=== PATIENT | female | born 1970 | race Caucasian/White ===

== ENCOUNTER 2017-12-14 03:29 | Emergency (ER) | payer OTHER ==
[~2017-12-14] VITALS: Ht 157.5 cm; Wt 60.8 kg
[~2017-12-14 03:29] MED LIST: ALBU8.5H6 IH; AMIT75TA PO; CHOL-5 PO; FOLI1TAB16 PO; LORA-434 PO; NAPH15DR20 OP; NICO1PAT25 TP; RIZA10TA10 PO; SIMV20TA3 PO; VENL75TA PO; [UNRECOGNIZED DRUG - CODE] PO
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
[2017-12-14 04:26] LABS: BASO # 0.1 x10^3/uL (0.0-0.2); BASO % 1 % (0-3); EOS # 0.3 x10^3/uL (0.0-0.7); EOS % 4 % (0-3); HEMATOCRIT 44.2 % (36.0-47.0); HEMOGLOBIN 14.9 g/dL (12.0-15.5); LYMPH # 2.1 x10^3/uL (1.0-4.8); LYMPH % 27 % (24-48); MEAN CORPUSCULAR HEMOGLOBIN 29 pg (25-35); MEAN CORPUSCULAR HGB CONC 34 g/dL (31-37); MEAN CORPUSCULAR VOLUME 85 fL (79-100); MONO # 0.9 x10^3/uL (0.0-1.1); MONO % 12 % (0-9); NEUT # 4.4 x10^3uL (1.8-7.7); NEUT % 57 % (31-73); PLATELET COUNT 285 x10^3/uL (140-400); RED BLOOD COUNT 5.19 x10^6/uL (3.50-5.40); RED CELL DISTRIBUTION WIDTH 14.9 % (11.5-14.5); WHITE BLOOD COUNT 7.7 x10^3/uL (4.0-11.0)
[2017-12-14] MEDS ORDERED: ONDANSETRON PF 4 MG/2 ML VIAL. IV ONE (04:30)
[2017-12-14] MEDS ORDERED: MVI, ADULT NO.4 WITH VIT K 10 ML, FOLIC ACID SYRINGE for ER 1 MG, THIAMINE 100 MG in IV... IV ONE ×4 (04:30)
[2017-12-14 04:31] LABS: BARBITURATES NEG (NEG); BENZODIAZEPINES NEG (NEG); CANNABINOIDS NEG (NEG); COCAINE NEG (NEG); METHADONE NEG (NEG); OPIATES NEG (NEG); PHENCYCLIDINE NEG (NEG)
[2017-12-14 04:38] LABS: ALBUMIN 3.9 g/dL (3.4-5.0); ALK PHOS 95 U/L (46-116); ALT (SGPT) 71 U/L (14-59); ANION GAP 16 (6-14); AST (SGOT) 62 U/L (15-37); BLOOD UREA NITROGEN 22 mg/dL (7-20); CALCIUM 8.8 mg/dL (8.5-10.1); CARBON DIOXIDE 23 mmol/L (21-32); CHLORIDE 108 mmol/L (98-107); CREATININE 0.9 mg/dL (0.6-1.0); GFR 67.4; GLUCOSE 90 mg/dL (70-99); POTASSIUM 3.7 mmol/L (3.5-5.1); SODIUM 147 mmol/L (136-145); TOTAL BILIRUBIN 0.2 mg/dL (0.2-1.0); TOTAL PROTEIN 7.9 g/dL (6.4-8.2)
[2017-12-14] MEDS ORDERED: THIAMINE 200 MG/2 ML VIAL. IV ONE (04:38)
[2017-12-14] MEDS ORDERED: FOLIC ACID 5 MG/ML SYRINGE for ER IV ONE (04:39)
[2017-12-14] MEDS ORDERED: MVI, ADULT NO.4 WITH VIT K 10 ML VIAL IV ONE (04:39)
[2017-12-14 04:47] LABS: AMPHETAMINE/METHAMPHETAMINE NEG (NEG); DIRECT BILIRUBIN < 0.1 mg/dL (0.0-0.2)
[2017-12-14 05:08] LABS: BILIRUBIN,URINE NEG (NEG); CLARITY,URINE CLEAR; COLOR,URINE STRAW; GLUCOSE,URINE NEG (NEG); NITRITE,URINE NEG (NEG); RBC,URINE 0 /HPF (0-2); UROBILINOGEN,URINE 0.2 mg/dL (0.2 mg/dL); WBC,URINE 0 /HPF (0-4)
[2017-12-14 05:09] LABS: BACTERIA,URINE FEW /HPF (0-FEW); SQUAMOUS EPITHELIAL CELL,UR FEW /LPF
[2017-12-14 07:06] VITALS: BP 110/58
== END 2017-12-14 07:06 | disposition home or self-care (01) ==
LOC: ER 03:29
DX: F10.129 Alcohol abuse with intoxication, unspecified (principal); E87.0 Hyperosmolality and hypernatremia; R74.0 Nonspecific elevation of levels of transaminase and lactic acid dehydrogenase [LDH]; Z88.0 Allergy status to penicillin
CPT/HCPCS: 36415; 80048; 80076; 80307; 81001; 83735; 85025; 96365; 96375; 99284; G0480; J2405; J7120; G0479

== ENCOUNTER 2017-12-27 22:36 | Emergency (ER) | payer MEDICARE, OTHER ==
[~2017-12-27] VITALS: Ht 157.5 cm; Wt 60.8 kg
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
[2017-12-27] MEDS ORDERED: FOLIC ACID 5 MG/ML SYRINGE for ER IV ONE (23:04)
[2017-12-27] MEDS ORDERED: THIAMINE 200 MG/2 ML VIAL. IV ONE (23:04)
[2017-12-27] MEDS ORDERED: MVI, ADULT NO.4 WITH VIT K 10 ML VIAL IV ONE (23:04)
[2017-12-27] MEDS ORDERED: MVI, ADULT NO.4 WITH VIT K 10 ML, FOLIC ACID SYRINGE for ER 1 MG, THIAMINE 100 MG in IV... IV ONE ×4 (23:15)
[2017-12-27] MEDS ORDERED: LORazepam 2 MG/ML VIAL ONE (23:21)
[2017-12-27] MEDS ORDERED: LORazepam 2 MG/ML VIAL IV ONE (23:30)
[2017-12-27 23:45] LABS: BASO % 1 % (0-3); EOS # 0.1 x10^3/uL (0.0-0.7); EOS % 2 % (0-3); HEMATOCRIT 43.1 % (36.0-47.0); HEMOGLOBIN 14.6 g/dL (12.0-15.5); LYMPH # 1.4 x10^3/uL (1.0-4.8); LYMPH % 21 % (24-48); MEAN CORPUSCULAR HEMOGLOBIN 29 pg (25-35); MEAN CORPUSCULAR HGB CONC 34 g/dL (31-37); MEAN CORPUSCULAR VOLUME 84 fL (79-100); MONO # 1.1 x10^3/uL (0.0-1.1); MONO % 16 % (0-9); NEUT # 4.2 x10^3uL (1.8-7.7); NEUT % 61 % (31-73); PLATELET COUNT 210 x10^3/uL (140-400); RED BLOOD COUNT 5.13 x10^6/uL (3.50-5.40); RED CELL DISTRIBUTION WIDTH 14.7 % (11.5-14.5); WHITE BLOOD COUNT 6.9 x10^3/uL (4.0-11.0)
[2017-12-27 23:52] LABS: BACTERIA,URINE FEW /HPF (0-FEW); BILIRUBIN,URINE NEG (NEG); CLARITY,URINE CLEAR; COLOR,URINE STRAW; GLUCOSE,URINE NEG (NEG); NITRITE,URINE NEG (NEG); RBC,URINE 0 /HPF (0-2); SQUAMOUS EPITHELIAL CELL,UR FEW /LPF; UROBILINOGEN,URINE 0.2 mg/dL (0.2 mg/dL); WBC,URINE 0 /HPF (0-4)
[2017-12-27 23:56] LABS: ALBUMIN 3.8 g/dL (3.4-5.0); CALCIUM 8.4 mg/dL (8.5-10.1); CREATININE 0.8 mg/dL (0.6-1.0); DIRECT BILIRUBIN 0.1 mg/dL (0.0-0.2); GFR 76.9; POTASSIUM 4.3 mmol/L (3.5-5.1); TOTAL BILIRUBIN 0.1 mg/dL (0.2-1.0); TOTAL PROTEIN 7.8 g/dL (6.4-8.2)
[2017-12-27 23:57] LABS: BARBITURATES NEG (NEG); BENZODIAZEPINES NEG (NEG); CANNABINOIDS NEG (NEG); COCAINE NEG (NEG); METHADONE NEG (NEG); OPIATES NEG (NEG); PHENCYCLIDINE NEG (NEG)
[2017-12-27 23:59] LABS: AMPHETAMINE/METHAMPHETAMINE NEG (NEG)
[2017-12-28 00:05] VITALS: BP 142/45
== END 2017-12-28 00:10 | disposition home or self-care (01) ==
LOC: ER 22:36
DX: F10.129 Alcohol abuse with intoxication, unspecified (principal); F41.9 Anxiety disorder, unspecified; F32.9 Major depressive disorder, single episode, unspecified; Z72.0 Tobacco use; Z88.0 Allergy status to penicillin
CPT/HCPCS: 36415; 80048; 80076; 80307; 81001; 83735; 85025; 96365; 96375; 99284; G0480; J2060; J7120; G0479

== ENCOUNTER 2018-01-19 23:43 | Emergency (ER) | payer MEDICARE, OTHER ==
[~2018-01-19] VITALS: Ht 157.5 cm; Wt 60.8 kg
--- NOTE | 2018-01-19 23:52 | ED.ADGEN ---
Past History Past Medical History: Alcoholism, Anxiety, Depression, Other Past Surgical History: Other Alcohol Use: Heavy Drug Use: None Adult General Chief Complaint Chief Complaint ".. I was over at the [facility] and they told me to leave.. I was wanting to sober up...".. " and they kicked me out the ED at the [facility].. ".." I earned two silver stars..in the service.. and they just kicked me out of the ED..." HPI HPI Patient is a 47 year old female/male in transition who presents with requests for in pt. detox. Pt. was at [facility] [address] one hour ago and states they told him to leave. Pt. is know to the ED staff for prior ED visits . Pt currently sex change process. Pt. admits to drinking heavily tonight. Pt. earlier in the the week had fallen and hit his heard very hard. Pt. concerned he had a concussion.. Pt. hx alcohol abuse. Paramedics advised they had just dropped pt. off at [facility] less than 1 hr. ago. Review of Systems Review of Systems Constitutional: Denies fever or chills [] Eyes: Denies change in visual acuity, redness, or eye pain [] HENT: Denies nasal congestion or sore throat [] Respiratory: Denies cough or shortness of breath [] Cardiovascular: No additional information not addressed in HPI [] GI: Denies abdominal pain, nausea, vomiting, bloody stools or diarrhea [] : Denies dysuria or hematuria [] Musculoskeletal: Denies back pain or joint pain [] Integument: Denies rash or skin lesions [] Neurologic: Complaints of headache, Denies, focal weakness or sensory changes [ ] Endocrine: Denies polyuria or polydipsia [] All other systems were reviewed and found to be within normal limits, except as documented in this note. Family History Family History Non-contributory Current Medications Current Medications Current Medications Medications (Trade) Dose Ordered Sig/Santosh Start Time Stop Time Status Last Admin Dose Admin Multivitamins/ Minerals 10 ml/ Folic Acid 1 mg/ Thiamine HCl 100 mg/Lactated Ringer's 1,011.1 ml @ 1,000 mls/ hr 1X ONCE 01/20/18 00:30 01/20/18 01:30 DC See nursing for home meds. Allergies Allergies Allergies Coded Allergies Type Severity Reaction Last Updated Verified Penicillins Allergy Intermediate 08/17/14 Yes ketamine Allergy Unknown 12/28/17 Yes Physical Exam Physical Exam Constitutional: no acute distress, mildly intoxicated in appearance. [] HENT: Normocephalic, atraumatic, bilateral external ears normal, oropharynx moist, no oral exudates, nose normal. [] Eyes: PERRLA, EOMI, conjunctiva normal, no discharge. [] Neck: Normal range of motion, no tenderness, supple, no stridor. [] Cardiovascular: Tachycardia Heart rate regular rhythm, no murmur [] Lungs & Thorax: Bilateral breath sounds clear to auscultation []Has breast wrapped flat Abdomen: Bowel sounds normal, soft, no tenderness, no masses, no pulsatile masses. [] Skin: Warm, dry, no erythema, no rash. [] Back: No tenderness, no CVA tenderness. [] Extremities: No tenderness, no cyanosis, no clubbing, ROM intact, no edema. Leg scars. Neurologic: Alert and oriented X 3, normal motor function, normal sensory function, no focal deficits noted. []DTR +2 patella and brachial. Wide gait. Mild dis coordination. Psychologic: Affect happy, judgement poor insight to his behavior and excessive alcohol use. mood normal. [] Current Patient Data Vital Signs Vital Signs Date Time Temp Pulse Resp B/P (MAP) Pulse Ox O2 Delivery O2 Flow Rate FiO2 01/20/18 01:20 90 20 127/78 (94) 96 Room Air 01/20/18 00:45 98.3 Lab Results Laboratory Tests Test 01/20/18 00:20 01/20/18 00:30 Urine Collection Type Unknown Urine Color Yellow Urine Clarity Clear Urine pH 5.5 Urine Specific [place] 1.010 Urine Protein Neg (NEG-TRACE) Urine Glucose (UA) Neg mg/dL (NEG) Urine Ketones (Stick) Neg mg/dL (NEG) Urine Blood Neg (NEG) Urine Nitrite Neg (NEG) Urine Bilirubin Neg (NEG) Urine Urobilinogen Dipstick 0.2 mg/dL (0.2 mg/dL) Urine Leukocyte Esterase Neg (NEG) Urine RBC 0 /HPF (0-2) Urine WBC Occ /HPF (0-4) Urine Squamous Epithelial Cells Occ /LPF Urine Bacteria 0 /HPF (0-FEW) White Blood Count 4.0 x10^3/uL (4.0-11.0) Red Blood Count 5.06 x10^6/uL (4.30-5.70) Hemoglobin 14.1 g/dL (13.0-17.5) Hematocrit 42.1 % (39.0-53.0) Mean Corpuscular Volume 83 fL (79-100) Mean Corpuscular Hemoglobin 28 pg (25-35) Mean Corpuscular Hemoglobin Concent 34 g/dL (31-37) Red Cell Distribution Width 16.7 % (11.5-14.5) H Platelet Count 324 x10^3/uL (140-400) Neutrophils (%) (Auto) 40 % (31-73) Lymphocytes (%) (Auto) 39 % (24-48) Monocytes (%) (Auto) 15 % (0-9) H Eosinophils (%) (Auto) 4 % (0-3) H Basophils (%) (Auto) 3 % (0-3) Neutrophils # (Auto) 1.6 x10^3uL (1.8-7.7) L Lymphocytes # (Auto) 1.6 x10^3/uL (1.0-4.8) Monocytes # (Auto) 0.6 x10^3/uL (0.0-1.1) Eosinophils # (Auto) 0.2 x10^3/uL (0.0-0.7) Basophils # (Auto) 0.1 x10^3/uL (0.0-0.2) Troponin I Quantitative < 0.017 ng/mL (0-0.055) Urine Opiates Screen Neg (NEG) Urine Methadone Screen Neg (NEG) Urine Barbiturates Neg (NEG) Urine Phencyclidine Screen Neg (NEG) Urine Amphetamine/Methamphetamine Neg (NEG) Urine Benzodiazepines Screen Neg (NEG) Urine Cocaine Screen Neg (NEG) Urine Cannabinoids Screen Neg (NEG) Urine Ethyl Alcohol Pos (NEG) EKG EKG My interpretation EKG shows a sinus tachycardia at103 beats. No acute morphology appreciated.[] Radiology/Procedures Radiology/Procedures My interpretation chest x-ray shows no acute cardiopulmonary changes.. I interpretation CT of head shows no shift, mass, edema, bleed, or fracture. My interpretation of CT of neck shows no obvious fracture dislocation. Does have some mild degenerative joint changes. Does have some form foraminal narrowing due spurs. See Formal report when available. [] Course & Med Decision Making Course & Med Decision Making Pertinent Labs and Imaging studies reviewed. (See chart for details) Pt. encourage to stop drinking alcohol. Encourage pt to get inpt. rehab. Pt. demanded discharge. Was released in company of friend. Pt. encouraged return. [] Final Impression Final Impression 1. Alcohol Abuse[] Dragon Disclaimer Dragon Disclaimer This electronic medical record was generated, in whole or in part, using a voice recognition dictation system. NATALI MAURICIO MD January 19, 2018 23:52
[2018-01-20] MEDS ORDERED: MVI, ADULT NO.4 WITH VIT K 10 ML, FOLIC ACID SYRINGE for ER 1 MG, THIAMINE 100 MG in IV... IV ONE ×4 (00:30)
[2018-01-20 00:59] LABS: BASO # 0.1 x10^3/uL (0.0-0.2); BASO % 3 % (0-3); EOS # 0.2 x10^3/uL (0.0-0.7); EOS % 4 % (0-3); HEMATOCRIT 42.1 % (39.0-53.0); HEMOGLOBIN 14.1 g/dL (13.0-17.5); LYMPH # 1.6 x10^3/uL (1.0-4.8); LYMPH % 39 % (24-48); MEAN CORPUSCULAR HEMOGLOBIN 28 pg (25-35); MEAN CORPUSCULAR HGB CONC 34 g/dL (31-37); MEAN CORPUSCULAR VOLUME 83 fL (79-100); MONO # 0.6 x10^3/uL (0.0-1.1); MONO % 15 % (0-9); NEUT # 1.6 x10^3uL (1.8-7.7); NEUT % 40 % (31-73); PLATELET COUNT 324 x10^3/uL (140-400); RED BLOOD COUNT 5.06 x10^6/uL (4.30-5.70); RED CELL DISTRIBUTION WIDTH 16.7 % (11.5-14.5)
[2018-01-20 01:14] LABS: BARBITURATES NEG (NEG); BENZODIAZEPINES NEG (NEG); CANNABINOIDS NEG (NEG); COCAINE NEG (NEG); METHADONE NEG (NEG); OPIATES NEG (NEG); PHENCYCLIDINE NEG (NEG)
[2018-01-20 01:15] LABS: AMPHETAMINE/METHAMPHETAMINE NEG (NEG)
[2018-01-20 01:20] VITALS: BP 127/78
--- NOTE | 2018-01-20 01:25 | RAD ---
RS Compliance Statement: One or more of the following individualized dose reduction techniques were utilized for this examination: 1. Automated exposure control 2. Adjustment of the mA and/or kV according to patient size 3. Use of iterative reconstruction technique CT HEAD AND CERVICAL SPINE WITHOUT CONTRAST History: 182249.001 Injury from fall 01/16/18, headache and neck pain, patient states he thinks he had a seizure earlier today also. Hx: Seizures Comparison: None. Procedure: Axial images are obtained of the head from the skull base through the vertex without IV contrast. Noncontrast helical CT of the cervical spine was performed. Axial, sagittal, and coronal reconstructions were obtained. Findings: The ventricles and sulci are normal for the patient's age. No mass-effect, midline shift, hemorrhage or obvious acute infarction is identified. Basilar cisterns are patent. Bone windows demonstrate no significant calvarial abnormality. The visualized paranasal sinuses are clear. Mastoid air cells are well aerated. There is no evidence of acute fracture or acute malalignment of the cervical spine. Facet joints are intact, hypertrophic. There is disc space narrowing and degenerative endplate spurring in the cervical spine. There are spondylitic discs of C3/C4, C4/C5, C5/C6. Uncinate process hypertrophy contributes to neural foraminal narrowing. Visualized soft tissues of the neck demonstrate no significant abnormalities. The visualized lung apices are clear. IMPRESSION: 1. No acute intracranial abnormality. 2. No acute fracture of the cervical spine. Electronically signed by: Brett Corey MD (01/20/2018 1:21 AM) [id number]
--- NOTE | 2018-01-20 01:44 | EKG ---
[address] [address] Test Date: 2018-01-20 Test Time: 00:33:40 Pat Name: SY CREWS Department: Room: Gender: M Inspector: QAMAR : 1970 Requested By: NATALI MAURICIO Order Number: [id number] Reading MD: Measurements Intervals [place] Rate: 103 P: 67 [place]: 128 QRS: 68 QRSD: 100 T: 16 QT: 332 QTc: 437 Interpretive Statements SINUS TACHYCARDIA NO SPECIFIC ECG ABNORMALITIES RI6.01 No previous ECG available for comparison
[2018-01-20 01:59] LABS: BACTERIA,URINE 0 /HPF (0-FEW); BILIRUBIN,URINE NEG (NEG); CLARITY,URINE CLEAR; COLOR,URINE YELLOW; GLUCOSE,URINE NEG (NEG); NITRITE,URINE NEG (NEG); RBC,URINE 0 /HPF (0-2); SQUAMOUS EPITHELIAL CELL,UR OCC /LPF; UROBILINOGEN,URINE 0.2 mg/dL (0.2 mg/dL); WBC,URINE OCC /HPF (0-4)
--- NOTE | 2018-01-20 07:59 | RAD ---
Chest, PA and Lateral: Technique: PA and lateral views of the chest were obtained. History: Dizziness, dyspnea. Comparison: None. Findings: The heart and pulmonary vasculature appear within normal limits. The lungs are clear. The pleural margins are clear. Impression: No acute chest process is seen. Electronically signed by: Jose F Brown MD (01/20/2018 7:56 AM) [facility]
== END 2018-01-20 01:20 | disposition left against medical advice (07) ==
LOC: ER 23:43 → EDSEX 23:43 → ER 01-20 01:20
DX: F10.20 Alcohol dependence, uncomplicated (principal); R51 Headache; F41.9 Anxiety disorder, unspecified; F32.9 Major depressive disorder, single episode, unspecified; Z88.0 Allergy status to penicillin; Z88.8 Allergy status to other drugs, medicaments and biological substances
CPT/HCPCS: 36415; 70450; 71046; 72125; 80307; 81001; 84484; 85025; 93005; 99285-25; G0479

== ENCOUNTER 2018-02-26 21:15 | Emergency (ER) | payer MEDICARE, OTHER ==
[~2018-02-26] VITALS: Ht 157.5 cm; Wt 57.4 kg
[~2018-02-26 21:15] MED LIST changes: +LORA-254 PO; -LORA-434 PO
--- NOTE | 2018-02-26 21:23 | ED.ADGEN ---
Past History Past Medical History: Alcoholism, Anxiety, Depression, Other Past Surgical History: Other Smoking: Cigarettes Alcohol Use: Heavy Drug Use: Marijuana Adult General Chief Complaint Chief Complaint " .. I was just drinking.. and some one called the police on me.. I was drinking my normal 2 + pints a day... fuck.. I can't drink without someone calling the police... yes have been puking.. some blood...."".. I am not even close to my normal drunk..I bet my alcohol level is lower than any of the other times I ve been forced to come in here..." HPI HPI Patient is a 47 year old female/ male in transition who presents with hx of PD refer for medical eval. Pt. apparently turned into Police depart. for well being check. [place] [facility] then called Paramedics for transport to OR. Pt. refused to go to OR where he gets his primary care. Pt. know to ED staff, for frequent eval. for ETOH abuse. Pt. does have hx of Alcohol abuse, depression and anxiety disorder. No recent hx of travel, ill contracts or trauma. Pt. admit to alcohol use today. Pt. states he is not as drunk as usual. Review of Systems Review of Systems Constitutional: Denies fever or chills [] Eyes: Denies change in visual acuity, redness, or eye pain [] HENT: Denies nasal congestion or sore throat [] Respiratory: Denies cough or shortness of breath [] Cardiovascular: No additional information not addressed in HPI [] GI: Hx of abdominal pain,. Denies, bloody stools or diarrhea [Hx. of ] nausea , vomiting : Denies dysuria or hematuria [] Musculoskeletal: Denies back pain or joint pain [] Integument: Denies rash or skin lesions [] Neurologic: Denies headache, focal weakness or sensory changes [] Endocrine: Denies polyuria or polydipsia [] All other systems were reviewed and found to be within normal limits, except as documented in this note. Family History Family History Non contributory Current Medications Current Medications Current Medications Medications (Trade) Dose Ordered Sig/Santosh Start Time Stop Time Status Last Admin Dose Admin Famotidine (Pepcid) 20 mg 1X ONCE 02/26/18 22:00 02/26/18 22:01 DC 02/26/18 22:33 20 MG Folic Acid (FOLIC ACID SYRINGE for ER) 5 mg STK-MED ONCE 02/26/18 22:22 02/26/18 22:23 DC Magnesium Hydroxide (Milk Of Magnesia) 2,400 mg 1X ONCE 02/26/18 22:30 02/26/18 22:31 DC 02/26/18 22:33 2,400 MG Multivitamins/ Minerals (Infuvite Adult) 10 ml STK-MED ONCE 02/26/18 22:22 02/26/18 22:23 DC Multivitamins/ Minerals 10 ml/ Folic Acid 1 mg/ Thiamine HCl 100 mg/Sodium Chloride 1,011.1 ml @ 1,000 mls/ hr 1X ONCE 02/26/18 22:00 02/26/18 23:00 DC 02/26/18 22:30 1,000 MLS/HR Ondansetron HCl (Zofran Odt) 8 mg 1X ONCE 02/26/18 22:00 02/26/18 22:01 DC 02/26/18 22:33 8 MG Thiamine HCl 200 mg STK-MED ONCE 02/26/18 22:22 02/26/18 22:23 DC See Nursing for home meds. Allergies Allergies Allergies Coded Allergies Type Severity Reaction Last Updated Verified Penicillins Allergy Intermediate 02/26/18 Yes ketamine Allergy Unknown 02/26/18 Yes Physical Exam Physical Exam Constitutional: no acute distress, intoxicated in appearance. [] HENT: Normocephalic, atraumatic, bilateral external ears normal, oropharynx moist, no oral exudates, nose normal. [] Eyes: PERRLA, EOMI, conjunctiva injected, no discharge. [] Neck: Normal range of motion, no tenderness, supple, no stridor. [] Cardiovascular: Tachycardia Heart rate regular rhythm, no murmur [] Lungs & Thorax: Bilateral breath sounds equal at apex with scattered wheezes on auscultation []Breast are bounded. Abdomen: Bowel sounds normal, soft, mild generalized tenderness, palpable right liver edge, no pulsatile masses. [] Rectal old hemorrhoid tags. No gross blood on rectal exam. Skin: Warm, dry, no erythema, no rash. [] Back: No tenderness, no CVA tenderness. [] Extremities: No tenderness, no cyanosis, no clubbing, ROM intact, no edema. [] Rt. leg scar. No psoas. Neurologic: Alert and oriented X 3, Moves all ext. on request, has distal sensory function, no focal deficits noted. []Discoordinated. Psychologic: Affect anxious, judgement poor insight to his alcohol abuse and mood depressed. Angry about forced transport to ED. Current Patient Data Vital Signs Vital Signs Date Time Temp Pulse Resp B/P (MAP) Pulse Ox O2 Delivery O2 Flow Rate FiO2 02/26/18 21:18 98.4 91 20 100 Room Air Lab Results Laboratory Tests Test 02/26/18 21:40 02/26/18 21:50 02/26/18 22:50 02/27/18 02:30 Stool Occult Blood Negative (NEG) White Blood Count 4.2 x10^3/uL (4.0-11.0) Red Blood Count 5.24 x10^6/uL (4.30-5.70) Hemoglobin 14.6 g/dL (13.0-17.5) Hematocrit 43.8 % (39.0-53.0) Mean Corpuscular Volume 84 fL (79-100) Mean Corpuscular Hemoglobin 28 pg (25-35) Mean Corpuscular Hemoglobin Concent 33 g/dL (31-37) Red Cell Distribution Width 17.8 % (11.5-14.5) H Platelet Count 198 x10^3/uL (140-400) Neutrophils (%) (Auto) 55 % (31-73) Lymphocytes (%) (Auto) 32 % (24-48) Monocytes (%) (Auto) 10 % (0-9) H Eosinophils (%) (Auto) 2 % (0-3) Basophils (%) (Auto) 1 % (0-3) Neutrophils # (Auto) 2.3 x10^3uL (1.8-7.7) Lymphocytes # (Auto) 1.3 x10^3/uL (1.0-4.8) Monocytes # (Auto) 0.4 x10^3/uL (0.0-1.1) Eosinophils # (Auto) 0.1 x10^3/uL (0.0-0.7) Basophils # (Auto) 0.1 x10^3/uL (0.0-0.2) Sodium Level 146 mmol/L (136-145) H Potassium Level 3.5 mmol/L (3.5-5.1) Chloride Level 105 mmol/L (98-107) Carbon Dioxide Level 28 mmol/L (21-32) Anion Gap 13 (6-14) Blood Urea Nitrogen 12 mg/dL (8-26) Creatinine 0.9 mg/dL (0.7-1.3) Estimated GFR (Cockcroft-Gault) 90.4 Glucose Level 88 mg/dL (70-99) Calcium Level 8.2 mg/dL (8.5-10.1) L Magnesium Level 2.1 mg/dL (1.8-2.4) Creatine Kinase 203 U/L (39-308) Creatine Kinase MB (Mass) 5.7 ng/mL (0.0-3.6) H Creatine Kinase MB Relative Index 2.8 % (0-4) Troponin I Quantitative < 0.017 ng/mL (0-0.055) GJ-Fbt-R-Type Natriuretic Peptide 19 pg/mL (0-124) Salicylates Level 0.4 mg/dL (2.8-20.0) L Salicylate Last Dose Date Unknown Salicylate Last Dose Time Unknown Acetaminophen Level < 2.0 mcg/mL (10-30) L Acetaminophen Last Dose Date Unknown Acetaminophen Last Dose Time Unknown Ethyl Alcohol Level 441 mg/dL (0-10) *H Prothrombin Time 12.8 SEC (9.4-11.4) H Prothrombin Time INR 1.3 (0.9-1.1) H PTT 27 SEC (23-33) Urine Collection Type Unknown Urine Color Yellow Urine Clarity Clear Urine pH 6.5 Urine Specific [place] 1.015 Urine Protein Neg (NEG-TRACE) Urine Glucose (UA) Neg mg/dL (NEG) Urine Ketones (Stick) Neg mg/dL (NEG) Urine Blood Neg (NEG) Urine Nitrite Neg (NEG) Urine Bilirubin Neg (NEG) Urine Urobilinogen Dipstick 0.2 mg/dL (0.2 mg/dL) Urine Leukocyte Esterase Neg (NEG) Urine RBC 0 /HPF (0-2) Urine WBC Occ /HPF (0-4) Urine Squamous Epithelial Cells Occ /LPF Urine Bacteria 0 /HPF (0-FEW) Urine Opiates Screen Neg (NEG) Urine Methadone Screen Neg (NEG) Urine Barbiturates Neg (NEG) Urine Phencyclidine Screen Neg (NEG) Urine Amphetamine/Methamphetamine Neg (NEG) Urine Benzodiazepines Screen Neg (NEG) Urine Cocaine Screen Neg (NEG) Urine Cannabinoids Screen Neg (NEG) Urine Ethyl Alcohol Pos (NEG) EKG EKG My interpretation of EKG shows sinus 77, non-specific contour changes anteroseptal area. No findings of acute STEMI with contra lateral change. [] Radiology/Procedures Radiology/Procedures My interpretation of CXR show no acute cardiopul. changes. No free air under diaphragm. Abd. portion,. Increased Liver silhouette with nonspecific bowel gas pattern.[] Course & Med Decision Making Course & Med Decision Making Pertinent Labs and Imaging studies reviewed. (See chart for details)- Pt. constantly on phone during attempts to evaluate the Pt. , including rectal exam. Pt. friend- Sandhya [phone] Aunt- Avani Rhodes [place]- Pt. Discharge ambulatory with out problems. Encouraged pt to get in Alcohol rehab . program . Pt. to return if any concern.s [] Final Impression Final Impression 1. Alcohol Abuse 2. Hx. Tobacco Use 3. Nausea and Vomiting 4. Hypernatremia [] Dragon Disclaimer Dragon Disclaimer This electronic medical record was generated, in whole or in part, using a voice recognition dictation system. NATALI MAURICIO MD Feb 26, 2018 21:23
[2018-02-26] MEDS ORDERED: MVI, ADULT NO.4 WITH VIT K 10 ML, FOLIC ACID SYRINGE for ER 1 MG, THIAMINE 100 MG in IV... IV ONE ×4 (22:00)
[2018-02-26] MEDS ORDERED: ONDANSETRON ODT 4 MG TAB.RAPDIS PO ONE (22:00)
[2018-02-26] MEDS ORDERED: FAMOTIDINE 20 MG TABLET PO ONE (22:00)
[2018-02-26 22:19] LABS: BASO # 0.1 x10^3/uL (0.0-0.2); BASO % 1 % (0-3); EOS # 0.1 x10^3/uL (0.0-0.7); EOS % 2 % (0-3); HEMATOCRIT 43.8 % (39.0-53.0); HEMOGLOBIN 14.6 g/dL (13.0-17.5); LYMPH # 1.3 x10^3/uL (1.0-4.8); LYMPH % 32 % (24-48); MEAN CORPUSCULAR HEMOGLOBIN 28 pg (25-35); MEAN CORPUSCULAR HGB CONC 33 g/dL (31-37); MEAN CORPUSCULAR VOLUME 84 fL (79-100); MONO # 0.4 x10^3/uL (0.0-1.1); MONO % 10 % (0-9); NEUT # 2.3 x10^3uL (1.8-7.7); NEUT % 55 % (31-73); PLATELET COUNT 198 x10^3/uL (140-400); RED BLOOD COUNT 5.24 x10^6/uL (4.30-5.70); RED CELL DISTRIBUTION WIDTH 17.8 % (11.5-14.5); WHITE BLOOD COUNT 4.2 x10^3/uL (4.0-11.0)
[2018-02-26] MEDS ORDERED: MVI, ADULT NO.4 WITH VIT K 10 ML VIAL IV ONE (22:22)
[2018-02-26] MEDS ORDERED: THIAMINE 200 MG/2 ML VIAL. IV ONE (22:22)
[2018-02-26] MEDS ORDERED: FOLIC ACID 5 MG/ML SYRINGE for ER IV ONE (22:22)
--- NOTE | 2018-02-26 22:24 | RAD ---
Exam: AP portable chest History: Intoxication, GI bleeding. Comparison: January 20, 2018. Findings: The heart and mediastinal structures are within normal limits for size. Lungs are without infiltrate. No pleural effusion or pneumothorax is identified. Impression: 1. No acute cardiopulmonary process. Electronically signed by: Albino Steele MD (02/26/2018 10:21 PM) [id number]
--- NOTE | 2018-02-26 22:25 | RAD ---
History: Intoxication, GI bleeding. Comparison: None. Findings: AP supine and upright views of abdomen. Secondary to overexposure, examination is suboptimal. No gross pneumoperitoneum is identified. No convincing bowel obstruction is seen. Impression: Limited by poor technique. No gross abnormality identified. Electronically signed by: Albino Steele MD (02/26/2018 10:22 PM) [id number]
[2018-02-26] MEDS ORDERED: MAGNESIUM HYDROXIDE 2,400 MG/30 ML ORAL.SUSP. PO ONE (22:30)
[2018-02-26 22:31] LABS: ACETAMIN < 2.0 mcg/mL (10-30)
[2018-02-26 22:36] LABS: SALIC 0.4 mg/dL (2.8-20.0)
[2018-02-26 22:40] LABS: FECAL OB PT NEGATIVE (NEG)
[2018-02-26 22:42] LABS: ETHANOL 441 mg/dL (0-10)
[2018-02-26 22:50] LABS: CALCIUM 8.2 mg/dL (8.5-10.1); CREATININE 0.9 mg/dL (0.7-1.3); GFR 90.4; MAGNESIUM 2.1 mg/dL (1.8-2.4); POTASSIUM 3.5 mmol/L (3.5-5.1)
[2018-02-27 02:30] VITALS: BP 110/60
[2018-02-27 02:53] LABS: BARBITURATES NEG (NEG); BENZODIAZEPINES NEG (NEG); CANNABINOIDS NEG (NEG); COCAINE NEG (NEG); METHADONE NEG (NEG); OPIATES NEG (NEG); PHENCYCLIDINE NEG (NEG)
[2018-02-27 02:56] LABS: AMPHETAMINE/METHAMPHETAMINE NEG (NEG)
[2018-02-27 03:00] LABS: BACTERIA,URINE 0 /HPF (0-FEW); BILIRUBIN,URINE NEG (NEG); CLARITY,URINE CLEAR; COLOR,URINE YELLOW; GLUCOSE,URINE NEG (NEG); NITRITE,URINE NEG (NEG); RBC,URINE 0 /HPF (0-2); SQUAMOUS EPITHELIAL CELL,UR OCC /LPF; UROBILINOGEN,URINE 0.2 mg/dL (0.2 mg/dL); WBC,URINE OCC /HPF (0-4)
== END 2018-02-27 02:40 | disposition home or self-care (01) ==
LOC: ER 21:15 → EDSEX 21:15 → ER 02-27 02:40
DX: F10.20 Alcohol dependence, uncomplicated (principal); E87.0 Hyperosmolality and hypernatremia; R11.2 Nausea with vomiting, unspecified; F41.9 Anxiety disorder, unspecified; F32.9 Major depressive disorder, single episode, unspecified; F17.210 Nicotine dependence, cigarettes, uncomplicated; Z88.0 Allergy status to penicillin; Z88.8 Allergy status to other drugs, medicaments and biological substances
CPT/HCPCS: 36415; 71045; 74021; 80048; 80307; 81001; 82274; 82553; 83735; 83880; 84484; 85025; 85610; 85730; 96365; 96366; 99285; G0480; G6039; Q0162; 82003; G0479; J7030

== ENCOUNTER 2018-05-27 14:08 | Emergency (ER) | payer OTHER ==
[2018-05-27] MEDS ORDERED: IV NORMAL SALINE 1,000ML 1,000 ML IV ONE (14:30)
[2018-05-27 14:39] LABS: BASO % 1 % (0-3); EOS # 0.1 x10^3/uL (0.0-0.7); EOS % 1 % (0-3); HEMATOCRIT 44.4 % (36.0-47.0); HEMOGLOBIN 14.6 g/dL (12.0-15.5); LYMPH # 0.8 x10^3/uL (1.0-4.8); LYMPH % 21 % (24-48); MEAN CORPUSCULAR HEMOGLOBIN 29 pg (25-35); MEAN CORPUSCULAR HGB CONC 33 g/dL (31-37); MEAN CORPUSCULAR VOLUME 87 fL (79-100); MONO # 0.6 x10^3/uL (0.0-1.1); MONO % 15 % (0-9); NEUT # 2.5 x10^3uL (1.8-7.7); NEUT % 62 % (31-73); PLATELET COUNT 146 x10^3/uL (140-400)
[2018-05-27 14:43] LABS: BARBITURATES NEG (NEG); BENZODIAZEPINES NEG (NEG); CANNABINOIDS NEG (NEG); COCAINE NEG (NEG); METHADONE NEG (NEG); OPIATES NEG (NEG); PHENCYCLIDINE NEG (NEG)
[2018-05-27 14:46] LABS: AMPHETAMINE/METHAMPHETAMINE NEG (NEG)
[2018-05-27 14:51] LABS: BILIRUBIN,URINE NEG (NEG); CLARITY,URINE CLEAR; COLOR,URINE AMBER; GLUCOSE,URINE NEG (NEG); NITRITE,URINE NEG (NEG); RBC,URINE OCC /HPF (0-2); UROBILINOGEN,URINE 0.2 mg/dL (0.2 mg/dL)
[2018-05-27 14:52] LABS: BACTERIA,URINE FEW /HPF (0-FEW); GRANULAR CASTS,URINE OCC /HPF; HYALINE CASTS, URINE OCC /HPF; SQUAMOUS EPITHELIAL CELL,UR FEW /LPF
[2018-05-27 15:05] VITALS: BP 141/91
--- NOTE | 2018-05-27 15:05 | RAD ---
CT HEAD WITHOUT CONTRAST 05/27/2018 2:18 PM Indication: Altered mental status. Comparison: CT head January 12, 2018 Procedure: Multidetector CT imaging of the head was performed without the administration of contrast. Findings: There is no evidence of acute intracranial hemorrhage. There is no evidence of acute territorial infarction. Please note that CT is limited for evaluation of acute ischemia. No mass effect or midline shift is identified . The ventricles and basilar cisterns have an appropriate appearance. No abnormal extra-axial fluid collections are seen. No acute osseous changes are identified. Impression: No evidence of acute intracranial abnormality CT DOSING PQRS STATEMENT: One or more of the following individualized dose reduction techniques were utilized for this examination: 1. Automated exposure control 2. Adjustment of the mA and/or kV according to patient size 3. Use of iterative reconstruction technique Electronically signed by: Tao Segura MD (05/27/2018 3:01 PM) [id number]
[2018-05-27 15:11] LABS: CALCIUM 8.5 mg/dL (8.5-10.1); GFR 59.4; MAGNESIUM 1.8 mg/dL (1.8-2.4); POTASSIUM 3.8 mmol/L (3.5-5.1); TOTAL BILIRUBIN 0.6 mg/dL (0.2-1.0); TOTAL PROTEIN 8.1 g/dL (6.4-8.2)
[2018-05-27 15:15] LABS: ANISOCYTOSIS SLIGHT; OVALOCYTES OCC
[2018-05-27 15:16] LABS: PLT ESTIMATE ADEQUATE (ADEQUATE)
--- NOTE | 2018-05-27 15:28 | PHYS DOC ---
Past History Past Medical History: Alcoholism, Anxiety, Depression, Other Past Surgical History: Other Smoking: Cigarettes Alcohol Use: Heavy Drug Use: Marijuana Adult General Chief Complaint Chief Complaint: LOWEREXTREMITY INJURY HPI HPI Patient is a 47 year old female with presentation of a male who brought in by EMS because of complaining of acidosis. She with history of on Cardizem and was found in front of a liquor store and some bystander called 911. Patient states he had 3 pints of hard liquor today like his usual and thinks he has acidosis like before because he cannot think right. Patient denies pain, suicidal ideation, homicidal ideation, hallucination. Review of Systems Review of Systems Constitutional: Denies fever or chills [] Eyes: Denies change in visual acuity, redness, or eye pain [] HENT: Denies nasal congestion or sore throat [] Respiratory: Denies cough or shortness of breath [] Cardiovascular: No additional information not addressed in HPI [] GI: Denies abdominal pain, nausea, vomiting, bloody stools or diarrhea [] : Denies dysuria or hematuria [] Musculoskeletal: Denies back pain or joint pain [] Integument: Denies rash or skin lesions [] Neurologic: Denies headache, focal weakness or sensory changes [] Endocrine: Denies polyuria or polydipsia [] All other systems were reviewed and found to be within normal limits, except as documented in this note. Current Medications Current Medications Current Medications Medications (Trade) Dose Ordered Sig/Santosh Start Time Stop Time Status Last Admin Dose Admin Sodium Chloride 1,000 ml @ 1,000 mls/hr 1X ONCE 05/27/18 14:30 05/27/18 15:18 DC Allergies Allergies Allergies Coded Allergies Type Severity Reaction Last Updated Verified Penicillins Allergy Intermediate 02/26/18 Yes ketamine Allergy Unknown 02/26/18 Yes Physical Exam Physical Exam Constitutional: Mild distress, non-toxic appearance, smell of alcohol on breath. [] HENT: Normocephalic, atraumatic, oropharynx moist, no oral exudates, nose normal. [] Eyes: PERRLA, EOMI, conjunctiva normal, no discharge. [] Neck: Normal range of motion, no tenderness, supple, no stridor. [] Cardiovascular: Tachycardia, no murmur [] Lungs & Thorax: Bilateral breath sounds clear to auscultation [] Abdomen: Bowel sounds normal, soft, no tenderness, no masses, no pulsatile masses. [] Skin: Warm, dry, no erythema, no rash, multiple old ecchymosis on extremities. Back: No tenderness, no CVA tenderness. [] Extremities: No tenderness, no cyanosis, no clubbing, ROM intact, no edema. [] Neurologic: Alert and oriented X 3, normal motor function, normal sensory function, no focal deficits noted. [] Psychologic: Affect anxious, mood normal. [] Current Patient Data Vital Signs Vital Signs Date Time Temp Pulse Resp B/P (MAP) Pulse Ox O2 Delivery O2 Flow Rate FiO2 05/27/18 15:05 118 22 141/91 (108) 99 05/27/18 14:20 98.9 Room Air Lab Results Laboratory Tests Test 05/27/18 14:20 05/27/18 14:25 Urine Collection Type Unknown Urine Color [place] Urine Clarity Clear Urine pH 5.5 Urine Specific [place] 1.020 Urine Protein 100 mg/dl (NEG-TRACE) Urine Glucose (UA) Neg mg/dL (NEG) Urine Ketones (Stick) 40 mg/dL (NEG) Urine Blood Small (NEG) Urine Nitrite Neg (NEG) Urine Bilirubin Neg (NEG) Urine Urobilinogen Dipstick 0.2 mg/dL (0.2 mg/dL) Urine Leukocyte Esterase Trace (NEG) Urine RBC Occ /HPF (0-2) Urine WBC 1-4 /HPF (0-4) Urine Squamous Epithelial Cells Few /LPF Urine Bacteria Few /HPF (0-FEW) Urine Hyaline Casts Occ /HPF Urine Granular Casts Occ /HPF Urine Mucus Slight /LPF Urine Opiates Screen Neg (NEG) Urine Methadone Screen Neg (NEG) Urine Barbiturates Neg (NEG) Urine Phencyclidine Screen Neg (NEG) Urine Amphetamine/Methamphetamine Neg (NEG) Urine Benzodiazepines Screen Neg (NEG) Urine Cocaine Screen Neg (NEG) Urine Cannabinoids Screen Neg (NEG) Urine Ethyl Alcohol Pos (NEG) White Blood Count 4.0 x10^3/uL (4.0-11.0) Red Blood Count 5.10 x10^6/uL (3.50-5.40) Hemoglobin 14.6 g/dL (12.0-15.5) Hematocrit 44.4 % (36.0-47.0) Mean Corpuscular Volume 87 fL (79-100) Mean Corpuscular Hemoglobin 29 pg (25-35) Mean Corpuscular Hemoglobin Concent 33 g/dL (31-37) Red Cell Distribution Width 21.0 % (11.5-14.5) H Platelet Count 146 x10^3/uL (140-400) Neutrophils (%) (Auto) 62 % (31-73) Lymphocytes (%) (Auto) 21 % (24-48) L Monocytes (%) (Auto) 15 % (0-9) H Eosinophils (%) (Auto) 1 % (0-3) Basophils (%) (Auto) 1 % (0-3) Neutrophils # (Auto) 2.5 x10^3uL (1.8-7.7) Lymphocytes # (Auto) 0.8 x10^3/uL (1.0-4.8) L Monocytes # (Auto) 0.6 x10^3/uL (0.0-1.1) Eosinophils # (Auto) 0.1 x10^3/uL (0.0-0.7) Basophils # (Auto) 0.0 x10^3/uL (0.0-0.2) Platelet Estimate Adequate (ADEQUATE) Anisocytosis Slight Macrocytosis Slight Ovalocytes Occ Sodium Level 137 mmol/L (136-145) Potassium Level 3.8 mmol/L (3.5-5.1) Chloride Level 98 mmol/L (98-107) Carbon Dioxide Level 22 mmol/L (21-32) Anion Gap 17 (6-14) H Blood Urea Nitrogen 10 mg/dL (7-20) Creatinine 1.0 mg/dL (0.6-1.0) Estimated GFR (Cockcroft-Gault) 59.4 BUN/Creatinine Ratio 10 (6-20) Glucose Level 132 mg/dL (70-99) H Calcium Level 8.5 mg/dL (8.5-10.1) Magnesium Level 1.8 mg/dL (1.8-2.4) Total Bilirubin 0.6 mg/dL (0.2-1.0) Aspartate Amino Transferase (AST) 415 U/L (15-37) H Alanine Aminotransferase (ALT) 238 U/L (14-59) H Alkaline Phosphatase 111 U/L (46-116) Creatine Kinase 381 U/L (26-192) H Total Protein 8.1 g/dL (6.4-8.2) Albumin 4.0 g/dL (3.4-5.0) Albumin/Globulin Ratio 1.0 (1.0-1.7) Ethyl Alcohol Level 398 mg/dL (0-10) H EKG EKG [] Radiology/Procedures Radiology/Procedures [] Course & Med Decision Making Course & Med Decision Making Pertinent Labs reviewed. (See chart for details) Evaluation of patient in ER showed 47-year-old transgender female to male patient brought in by EMS because of alcohol abuse. Patient complaining of acidosis because of confusion. Patient was alert and oriented and walks without problem patient had tachycardia and anxiety and treated with IV fluid but decided to leave AMA. Dragon Disclaimer Dragon Disclaimer This electronic medical record was generated, in whole or in part, using a voice recognition dictation system. Departure Departure: Impression: Primary Impression: Left against medical advice Additional Impressions: Alcohol abuse Abnormal liver function test Anxiety Disposition: 07 AGAINST MEDICAL ADVICE (at 1512) Condition: STABLE Problem Qualifiers RAFAEL CALDERON MD May 27, 2018 15:28
== END 2018-05-27 15:10 | disposition left against medical advice (07) ==
LOC: ER 14:08
DX: F10.20 Alcohol dependence, uncomplicated (principal); R79.89 Other specified abnormal findings of blood chemistry; F41.9 Anxiety disorder, unspecified; F32.9 Major depressive disorder, single episode, unspecified; F17.210 Nicotine dependence, cigarettes, uncomplicated; R41.0 Disorientation, unspecified; Z88.0 Allergy status to penicillin; Z88.8 Allergy status to other drugs, medicaments and biological substances; Y90.8 Blood alcohol level of 240 mg/100 ml or more
CPT/HCPCS: 36415; 70450; 80053; 80307; 81001; 82550; 83735; 85025; 87086; 99285; G0480; G0479

== ENCOUNTER 2018-07-13 17:32 | Emergency (ER) | payer OTHER ==
[~2018-07-13] VITALS: Ht 160 cm; Wt 56.0 kg
[2018-07-13] MEDS ORDERED: THIAMINE 200 MG/2 ML VIAL. IV ONE (18:06)
[2018-07-13] MEDS ORDERED: MVI, ADULT NO.4 WITH VIT K 10 ML VIAL IV ONE ×2 (18:06→18:26)
[2018-07-13] MEDS ORDERED: FOLIC ACID 5 MG/ML SYRINGE for ER IV ONE (18:06)
[2018-07-13 18:13] LABS: BASO # 0.1 x10^3/uL (0.0-0.2); BASO % 2 % (0-3); EOS # 0.1 x10^3/uL (0.0-0.7); EOS % 1 % (0-3); HEMATOCRIT 46.4 % (36.0-47.0); HEMOGLOBIN 15.2 g/dL (12.0-15.5); LYMPH # 1.4 x10^3/uL (1.0-4.8); LYMPH % 24 % (24-48); MEAN CORPUSCULAR HEMOGLOBIN 27 pg (25-35); MEAN CORPUSCULAR HGB CONC 33 g/dL (31-37); MEAN CORPUSCULAR VOLUME 83 fL (79-100); MONO # 0.6 x10^3/uL (0.0-1.1); MONO % 10 % (0-9); NEUT # 3.9 x10^3uL (1.8-7.7); NEUT % 64 % (31-73); PLATELET COUNT 334 x10^3/uL (140-400); RED BLOOD COUNT 5.59 x10^6/uL (3.50-5.40); RED CELL DISTRIBUTION WIDTH 19.1 % (11.5-14.5); WHITE BLOOD COUNT 6.1 x10^3/uL (4.0-11.0)
[2018-07-13] MEDS ORDERED: ONDANSETRON PF 4 MG/2 ML VIAL. IV ONE (18:15)
[2018-07-13] MEDS ORDERED: MVI, ADULT NO.4 WITH VIT K 10 ML, FOLIC ACID SYRINGE for ER 1 MG, THIAMINE INJ 100 MG i... IV ONE ×4 (18:15)
[2018-07-13 18:22] LABS: AMPHETAMINE/METHAMPHETAMINE NEG (NEG); BARBITURATES NEG (NEG); BENZODIAZEPINES NEG (NEG); CANNABINOIDS NEG (NEG); COCAINE NEG (NEG); METHADONE NEG (NEG); OPIATES NEG (NEG); PHENCYCLIDINE NEG (NEG)
[2018-07-13 18:24] LABS: ALBUMIN 4.2 g/dL (3.4-5.0); ALBUMIN/GLOBULIN RATIO 1.1 (1.0-1.7); CALCIUM 8.8 mg/dL (8.5-10.1); CREATININE 1.1 mg/dL (0.6-1.0); GFR 53.2; POTASSIUM 3.9 mmol/L (3.5-5.1); TOTAL BILIRUBIN 0.3 mg/dL (0.2-1.0); TOTAL PROTEIN 8.2 g/dL (6.4-8.2)
--- NOTE | 2018-07-13 18:32 | PHYS DOC ---
Adult General Chief Complaint Chief Complaint intoxicated HPI HPI This is a 47 years old female presented to the emergency department with a chief complaint abdomen drinking for the past 3 days , she stated that she hasn' t had any food for the past 3 days on alcohol she denies any suicidal thoughts. No fever no chills or shortness of breath no abdominal pain no diarrhea and urgency no frequency no hematuria Review of Systems Review of Systems Constitutional: Denies fever or chills [] Eyes: Denies change in visual acuity, redness, or eye pain [] HENT: Denies nasal congestion or sore throat [] Respiratory: Denies cough or shortness of breath [] Cardiovascular: No additional information not addressed in HPI [] GI: Denies abdominal pain, nausea, vomiting, bloody stools or diarrhea [] : Denies dysuria or hematuria [] Musculoskeletal: Denies back pain or joint pain [] Integument: Denies rash or skin lesions [] Neurologic: Denies headache, focal weakness or sensory changes [] Endocrine: Denies polyuria or polydipsia [] All other systems were reviewed and found to be within normal limits, except as documented in this note. Current Medications Current Medications Current Medications Medications (Trade) Dose Ordered Sig/Santosh Start Time Stop Time Status Last Admin Dose Admin Folic Acid (FOLIC ACID SYRINGE for ER) 5 mg STK-MED ONCE 07/13/18 18:06 07/13/18 18:07 DC Multivitamins/ Minerals (Infuvite Adult) 10 ml STK-MED ONCE 07/13/18 18:26 07/13/18 18:27 DC Multivitamins/ Minerals 10 ml/ Folic Acid 1 mg/ Thiamine HCl 100 mg/Sodium Chloride 1,011.1 ml @ 1,000 mls/ hr 1X ONCE 07/13/18 18:15 18 19:15 18 18:19 1,000 MLS/HR Ondansetron HCl (Zofran) 4 mg 1X ONCE 07/13/18 18:15 18 18:24 DC 07/13/18 18:17 4 MG Thiamine HCl (Thiamine Vial) 200 mg STK-MED ONCE 07/13/18 18:06 07/13/18 18:07 DC Allergies Allergies Allergies Coded Allergies Type Severity Reaction Last Updated Verified Penicillins Allergy Intermediate 02/26/18 Yes ketamine Allergy Unknown 02/26/18 Yes Physical Exam Physical Exam Constitutional: Well developed, well nourished, no acute distress, non-toxic appearance. [] HENT: Normocephalic, atraumatic, bilateral external ears normal, oropharynx moist, no oral exudates, nose normal. [] Eyes: PERRLA, EOMI, conjunctiva normal, no discharge. [] Neck: Normal range of motion, no tenderness, supple, no stridor. [] Cardiovascular:Heart rate regular rhythm, no murmur [] Lungs & Thorax: Bilateral breath sounds clear to auscultation [] Abdomen: Bowel sounds normal, soft, no tenderness, no masses, no pulsatile masses. [] Skin: Warm, dry, no erythema, no rash. [] Back: No tenderness, no CVA tenderness. [] Extremities: No tenderness, no cyanosis, no clubbing, ROM intact, no edema. [] Neurologic: Alert and oriented X 3, normal motor function, normal sensory function, no focal deficits noted. [] Psychologic: Affect normal, judgement normal, mood normal. [] Current Patient Data Lab Results Laboratory Tests Test 07/13/18 17:40 White Blood Count 6.1 x10^3/uL (4.0-11.0) Red Blood Count 5.59 x10^6/uL (3.50-5.40) H Hemoglobin 15.2 g/dL (12.0-15.5) Hematocrit 46.4 % (36.0-47.0) Mean Corpuscular Volume 83 fL (79-100) Mean Corpuscular Hemoglobin 27 pg (25-35) Mean Corpuscular Hemoglobin Concent 33 g/dL (31-37) Red Cell Distribution Width 19.1 % (11.5-14.5) H Platelet Count 334 x10^3/uL (140-400) # Neutrophils (%) (Auto) 64 % (31-73) Lymphocytes (%) (Auto) 24 % (24-48) Monocytes (%) (Auto) 10 % (0-9) H Eosinophils (%) (Auto) 1 % (0-3) Basophils (%) (Auto) 2 % (0-3) Neutrophils # (Auto) 3.9 x10^3uL (1.8-7.7) Lymphocytes # (Auto) 1.4 x10^3/uL (1.0-4.8) Monocytes # (Auto) 0.6 x10^3/uL (0.0-1.1) Eosinophils # (Auto) 0.1 x10^3/uL (0.0-0.7) Basophils # (Auto) 0.1 x10^3/uL (0.0-0.2) Sodium Level 140 mmol/L (136-145) Potassium Level 3.9 mmol/L (3.5-5.1) Chloride Level 98 mmol/L (98-107) Carbon Dioxide Level 24 mmol/L (21-32) Anion Gap 18 (6-14) H Blood Urea Nitrogen 16 mg/dL (7-20) Creatinine 1.1 mg/dL (0.6-1.0) H Estimated GFR (Cockcroft-Gault) 53.2 BUN/Creatinine Ratio 15 (6-20) Glucose Level 116 mg/dL (70-99) H Calcium Level 8.8 mg/dL (8.5-10.1) Total Bilirubin 0.3 mg/dL (0.2-1.0) Aspartate Amino Transferase (AST) 55 U/L (15-37) H Alanine Aminotransferase (ALT) 50 U/L (14-59) Alkaline Phosphatase 96 U/L (46-116) Total Protein 8.2 g/dL (6.4-8.2) Albumin 4.2 g/dL (3.4-5.0) Albumin/Globulin Ratio 1.1 (1.0-1.7) Urine Opiates Screen Neg (NEG) Urine Methadone Screen Neg (NEG) Urine Barbiturates Neg (NEG) Urine Phencyclidine Screen Neg (NEG) Urine Amphetamine/Methamphetamine Neg (NEG) Urine Benzodiazepines Screen Neg (NEG) Urine Cocaine Screen Neg (NEG) Urine Cannabinoids Screen Neg (NEG) Urine Ethyl Alcohol Pos (NEG) EKG EKG [] Radiology/Procedures Radiology/Procedures [] Course & Med Decision Making Course & Med Decision Making Pertinent Labs and Imaging studies reviewed. (See chart for details) [] Final Impression Final Impression [] Problems: (1) Alcohol abuse (2) Alcoholism /alcohol abuse Dragon Disclaimer Dragon Disclaimer This electronic medical record was generated, in whole or in part, using a voice recognition dictation system. AMANDA PARKS MD Jul 13, 2018 18:32
[2018-07-13] MEDS ORDERED: HALOPERIDOL LACT 5 MG/ML VIAL. IVP PRN (18:45)
[2018-07-13] MEDS ORDERED: diphenhydrAMINE 50 MG/ML VIAL IVP PRN (18:45)
[2018-07-13] MEDS ORDERED: POTASSIUM CL 20MEQ D5-0.45NACL 1,000 ML IV ONE (18:45)
[2018-07-13] MEDS ORDERED: KETOROLAC 30 MG/ML VIAL. IV ONE (19:15)
[2018-07-13] MEDS ORDERED: POTASSIUM CHLORIDE 20 MEQ/15 ML ORAL LIQUID. PEG ONE (19:45)
[2018-07-13] MEDS ORDERED: PROCHLORPERAZINE 10 MG/2 ML VIAL. IV ONE (19:45)
--- NOTE | 2018-07-13 20:11 | RAD ---
Single view chest dated 07/13/2018. Comparison made to 02/26/2018. Clinical indication: Hypoxia. FINDINGS: Single upright portable exam performed. Heart and mediastinal contours are stable. Lungs are somewhat hyperinflated but otherwise clear. No consolidation or pleural effusion. No pneumothorax. IMPRESSION: No acute radiographic abnormality. Electronically signed by: Albino Mitchell MD (07/13/2018 8:07 PM) [facility]
[2018-07-13] MEDS ORDERED: ALBUTEROL SULFATE 2.5 MG/3 ML NEBU. NEB ONE (20:30)
[2018-07-13] MEDS ORDERED: SUMAtriptan SUCC 6 MG/0.5 ML VIAL SQ ONE (21:00)
[2018-07-13] MEDS ORDERED: IV DEXTROSE 5 %-0.45 % NACL 1,000 ML IV ONE (21:00)
[2018-07-13 22:11] VITALS: BP 116/68
== END 2018-07-13 22:17 | disposition home or self-care (01) ==
LOC: ER 17:32
DX: F10.229 Alcohol dependence with intoxication, unspecified (principal); Z88.0 Allergy status to penicillin; Z88.8 Allergy status to other drugs, medicaments and biological substances; Y90.8 Blood alcohol level of 240 mg/100 ml or more
CPT/HCPCS: 36415; 71045; 80053; 80307; 85025; 94640; 96365; 96372; 96375; 99285; G0480; J1885; J2405; J3030; J7613; J7030

== ENCOUNTER 2018-07-15 20:45 | Emergency (ER) | payer OTHER ==
[~2018-07-15] VITALS: Ht 160 cm; Wt 59.3 kg
[2018-07-15] MEDS ORDERED: IV DEXTROSE 5% - 0.9 % NACL 1,000 ML IV ONE (21:00)
[2018-07-15] MEDS ORDERED: THIAMINE 200 MG/2 ML VIAL. IV ONE (21:03)
[2018-07-15] MEDS ORDERED: MVI, ADULT NO.4 WITH VIT K 10 ML VIAL IV ONE (21:04)
[2018-07-15] MEDS ORDERED: FOLIC ACID 5 MG/ML SYRINGE for ER IV ONE (21:04)
[2018-07-15] MEDS ORDERED: MVI, ADULT NO.4 WITH VIT K 10 ML, FOLIC ACID SYRINGE for ER 1 MG, THIAMINE INJ 100 MG i... IV ONE ×4 (21:15)
[2018-07-15 21:36] LABS: CALCIUM 8.4 mg/dL (8.5-10.1); CREATININE 0.9 mg/dL (0.6-1.0); GFR 67.1
--- NOTE | 2018-07-15 22:10 | PHYS DOC ---
Adult General Chief Complaint Chief Complaint intoxicated HPI HPI 47 years old female presented to the emergency department with the intoxication of alcohol. He denies any suicidal thoughts Review of Systems Review of Systems Limited due to patient intoxication Current Medications Current Medications Current Medications Medications (Trade) Dose Ordered Sig/Santosh Start Time Stop Time Status Last Admin Dose Admin Dextrose/Sodium Chloride 1,000 ml @ 0 mls/hr 1X ONCE 07/15/18 21:00 07/15/18 21:01 DC 07/15/18 21:00 1,000 MLS/HR Folic Acid (FOLIC ACID SYRINGE for ER) 5 mg STK-MED ONCE 07/15/18 21:04 07/15/18 21:05 DC Ketorolac Tromethamine (Toradol 30mg Vial) 30 mg 1X ONCE 07/15/18 22:15 07/15/18 22:16 07/15/18 21:53 30 MG Multivitamins/ Minerals (Infuvite Adult) 10 ml STK-MED ONCE 07/15/18 21:04 07/15/18 21:05 DC Multivitamins/ Minerals 10 ml/ Folic Acid 1 mg/ Thiamine HCl 100 mg/Sodium Chloride 1,011.1 ml @ 1,000 mls/ hr 1X ONCE 07/15/18 21:15 07/15/18 22:15 07/15/18 21:10 1,000 MLS/HR Prochlorperazine Edisylate (Compazine) 10 mg 1X ONCE 07/15/18 22:15 07/15/18 22:16 07/15/18 21:53 10 MG Sumatriptan Succinate (Imitrex) 6 mg 1X ONCE 07/15/18 22:15 07/15/18 22:16 07/15/18 21:53 6 MG Thiamine HCl (Thiamine Vial) 200 mg STK-MED ONCE 07/15/18 21:03 07/15/18 21:04 DC Allergies Allergies Allergies Coded Allergies Type Severity Reaction Last Updated Verified Penicillins Allergy Intermediate 02/26/18 Yes ketamine Allergy Unknown 02/26/18 Yes Physical Exam Physical Exam Constitutional: Well developed, well nourished, HENT: Normocephalic, atraumatic, bilateral external ears normal, oropharynx moist, no oral exudates, nose normal. [] Eyes: PERRLA, EOMI, conjunctiva normal, no discharge. [] Neck: Normal range of motion, no tenderness, supple, no stridor. [] Cardiovascular:Heart rate regular rhythm, no murmur [] Lungs & Thorax: Bilateral breath sounds clear to auscultation [] Abdomen: Bowel sounds normal, soft, no tenderness, no masses, no pulsatile masses. [] Skin: Warm, dry, no erythema, no rash. [] Back: No tenderness, no CVA tenderness. [] Extremities: No tenderness, no cyanosis, no clubbing, ROM intact, no edema. [] Neurologic: Alert and oriented X 3, normal motor function, normal sensory function, no focal deficits noted. [] Psychologic: Affect normal, judgement normal, mood normal. [] Current Patient Data Vital Signs Vital Signs Date Time Temp Pulse Resp B/P (MAP) Pulse Ox O2 Delivery O2 Flow Rate FiO2 07/15/18 21:48 100/54 (69) 07/15/18 21:38 80 16 98 Room Air 07/15/18 20:49 98.2 Lab Results Laboratory Tests Test 07/15/18 21:01 Sodium Level 142 mmol/L (136-145) Potassium Level 4.0 mmol/L (3.5-5.1) Chloride Level 99 mmol/L (98-107) Carbon Dioxide Level 27 mmol/L (21-32) Anion Gap 16 (6-14) H Blood Urea Nitrogen 12 mg/dL (7-20) Creatinine 0.9 mg/dL (0.6-1.0) Estimated GFR (Cockcroft-Gault) 67.1 Glucose Level 91 mg/dL (70-99) Calcium Level 8.4 mg/dL (8.5-10.1) L Ethyl Alcohol Level 425 mg/dL (0-10) *H EKG EKG [] Radiology/Procedures Radiology/Procedures [] Course & Med Decision Making Course & Med Decision Making Pertinent Labs and Imaging studies reviewed. (See chart for details) [] Final Impression Final Impression [] Problems: (1) Alcohol abuse (2) Alcoholism /alcohol abuse Dragon Disclaimer Dragon Disclaimer This electronic medical record was generated, in whole or in part, using a voice recognition dictation system. AMANDA PARKS MD Jul 15, 2018 22:09
[2018-07-15] MEDS ORDERED: PROCHLORPERAZINE 10 MG/2 ML VIAL. IV ONE (22:15)
[2018-07-15] MEDS ORDERED: KETOROLAC 30 MG/ML VIAL. IV ONE (22:15)
[2018-07-15] MEDS ORDERED: SUMAtriptan SUCC 6 MG/0.5 ML VIAL SQ ONE (22:15)
[2018-07-15 23:20] VITALS: BP 140/83
== END 2018-07-15 23:25 | disposition home or self-care (01) ==
LOC: ER 20:45
DX: F10.229 Alcohol dependence with intoxication, unspecified (principal); Z88.0 Allergy status to penicillin; Z88.4 Allergy status to anesthetic agent; Y90.8 Blood alcohol level of 240 mg/100 ml or more
CPT/HCPCS: 36415; 80048; 96365; 96366; 96372; 96375; 99283; G0480; J0780; J1885; J3030; J7042; J7030

== ENCOUNTER → 2018-10-09 | Outpatient (CLI) | payer OTHER | END | disposition home or self-care (01) | LOC: MAMMO 13:24 | PROVIDERS: ATTEND Nurse Practitioner Family | DX: Z12.31 Encounter for screening mammogram for malignant neoplasm of breast (principal) | CPT/HCPCS: 77067 ==

== ENCOUNTER 2018-11-07 18:23 | Emergency (ER) | payer SELFPAY ==
[~2018-11-07] VITALS: Ht 160 cm; Wt 59.3 kg
[2018-11-07 18:23] VITALS: BP 145/87
== END 2018-11-07 18:32 | disposition left against medical advice (07) ==
LOC: ER 18:23
DX: F10.129 Alcohol abuse with intoxication, unspecified (principal); Z53.21 Procedure and treatment not carried out due to patient leaving prior to being seen by health care provider; Y90.9 Presence of alcohol in blood, level not specified

== ENCOUNTER 2019-08-07 20:57 | Emergency (ER) | payer OTHER ==
[~2019-08-07] VITALS: Ht 157.5 cm; Wt 57.6 kg
[~2019-08-07 20:57] MED LIST changes: -RIZA10TA10 PO; +RIZA10TA91 PO; +SIMV20TA18 PO; -SIMV20TA3 PO
[2019-08-07] MEDS ORDERED: IV RINGERS SOLUTION,LACTATED 1,000 ML IV SCH (21:10)
--- NOTE | 2019-08-07 21:10 | PHYS DOC ---
Past History Past Medical History: Alcoholism, Anxiety, Depression, Hypertension Past Medical History PTSD, Past Surgical History: Other Past Surgical History Breast implants Smoking: Cigarettes Alcohol Use: Heavy Drug Use: None Adult General Chief Complaint Chief Complaint: ".. I drank too much... something... not right...."..." I did not want ... to come here... I wanted to go to the hospital ...I would go to the [place]....".. " I was at home...can't I get drunk in my own home...".." You know I drink every day...a lot.. you've seen me before.. you all treated me well.. I just want to go home..." HPI HPI Patient is a 48 year old male/female transition who presents with above hx and excessive alcohol intake. [facility] Pt. unsure the amount of alcohol intake..Has been seen before for Alcohol abuse. Prior alcohol levels have been in excess of 400. Pt. denies other drug use other than tobacco. . Patient demanding discharge. Patient angry that paramedics transfer to [place]. Patient states he just wants to go home. Pt. denies any suicidal ideation. Patient insistent on discharge home. Begged pt. to at least stay until his alcohol level reduced. Pt. insistent to be discharged. Review of Systems Review of Systems Constitutional: Denies fever or chills [] Eyes: Denies change in visual acuity, redness, or eye pain [] HENT: Denies nasal congestion or sore throat [] Respiratory: Denies cough or shortness of breath [] Cardiovascular: No additional information not addressed in HPI [] GI: Denies abdominal pain, nausea, vomiting, bloody stools or diarrhea [] : Denies dysuria or hematuria [] Musculoskeletal: Denies back pain or joint pain []Complaints of falling and contusions. Integument: Denies rash or skin lesions [] Neurologic: Denies headache, focal weakness or sensory changes [] Endocrine: Denies polyuria or polydipsia [] All other systems were reviewed and found to be within normal limits, except as documented in this note. Family History Family History Noncontributory Current Medications Current Medications See nursing for home medications Allergies Allergies Allergies Coded Allergies Type Severity Reaction Last Updated Verified Penicillins Allergy Intermediate 02/26/18 Yes ketamine Allergy Unknown 02/26/18 Yes Physical Exam Physical Exam Constitutional: no acute distress, intoxicated in appearance. [] HENT: Normocephalic, atraumatic, bilateral external ears normal, oropharynx moist, no oral exudates, nose normal. [] Eyes: PERRLA, EOMI, conjunctiva normal, no discharge. [] Neck: Normal range of motion, no tenderness, supple, no stridor. [] Cardiovascular: Tachycardia Heart rate regular rhythm, no murmur [] Lungs & Thorax: Bilateral breath sounds equal apex with few scattered wheezes on auscultation [] Abdomen: Bowel sounds normal, soft, no tenderness, no masses, no pulsatile masses. [] Skin: Warm, dry, no erythema, no rash. Multiple areas of contusions on rosa points such as knees and elbows and hands. Back: No tenderness, no CVA tenderness. [] Extremities: No tenderness, no cyanosis, no clubbing, ROM intact, no edema. [] Neurologic: Alert and oriented X 3, moves all extremities on request, has sensory function, wide gait and discoordinated. Psychologic: Affect angry, judgement normal, mood normal. [] EKG EKG My interpretation EKG shows a sinus tachycardic rhythm[] at 4 bpm. Does have some nonspecific contour abnormalities. But no findings of acute STEMI of contralateral changes. There is an inferior strain pattern. Radiology/Procedures Radiology/Procedures [][place] [address] IMAGING REPORT Signed PATIENT: SY CREWS ACCOUNT: [id number] : 1970 LOCATION: ER AGE: 48 SEX: F EXAM STATUS: PRE ER ORD. PHYSICIAN: NATALI MAURICIO MD REASON: discomfort PROCEDURE: PORTABLE CHEST 1V Indication: Discomfort. TECHNIQUE:Portable AP chest X-ray COMPARISON: 07/13/2018 FINDINGS:w heart is normal in size. Lungs are clear. No pneumothorax or pleural effusion. Visualized bony thorax within normal limits. IMPRESSION: No acute pulmonary process. Electronically signed by: Krish Alvarez DO (08/07/2019 10:35 PM) [facility] DICTATED AND SIGNED BY: KRISH ALVAREZ Rebecca DO DATE: 08/07/192234 CC: NATALI MAURICIO MD; GINA MCDOWELL MOTOR VEHICLE REPRESENTATIVE ~ Course & Med Decision Making Course & Med Decision Making Pertinent Labs and Imaging studies reviewed. (See chart for details). Begged patient to stay in allow his alcohol level to come down. Patient insistent on discharge. Stated he/she wanted take a cab home. Explained to patient the abnormal labs. Patient still insistent on discharge. Explained to pt. risks. Begged pt. repeatedly to stay. Pt. exhibit UCAR capacity, in spite his critical alcohol level. Begged pt. to consider in hospital alcohol rehab. Pt. currently refusing treatment and could not be encouraged to stay. Pt. called for a cab ride home. . Encourage patient return at any time to complete ED evaluation Impression: 1. Alcohol Abuse= 494 2. Thrombocytopenia 71 3. Elevated AST/ALT = 169/73 4. Elevated CK= 455 5. Elevated D-dimer 3.22 6. Multiple contusions- ( appears various stages of healing) [] Dragon Disclaimer Dragon Disclaimer This electronic medical record was generated, in whole or in part, using a voice recognition dictation system. Departure Departure: Disposition: 01 HOME/RESIDENCE PRIOR TO ADM Condition: STABLE Referrals: GINA MCDOWELL NP (PCP) Dragon Disclaimer This chart was dictated in whole or in part using Voice Recognition software in a busy, high-work load, and often noisy Emergency Department environment. It may contain unintended and wholly unrecognized errors or omissions. NATALI MAURICIO MD Aug 07, 2019 21:10
[2019-08-07] MEDS ORDERED: THIAMINE 200 MG/2 ML VIAL. IV ONE (21:22)
[2019-08-07] MEDS ORDERED: FOLIC ACID 5 MG/ML SYRINGE for ER IV ONE (21:22)
[2019-08-07] MEDS ORDERED: MVI, ADULT NO.4 WITH VIT K 10 ML VIAL IV ONE (21:22)
[2019-08-07] MEDS ORDERED: MVI, ADULT NO.4 WITH VIT K 10 ML, FOLIC ACID SYRINGE for ER 1 MG, THIAMINE INJ 100 MG i... IV ONE ×4 (21:30)
[2019-08-07 21:37] VITALS: BP 151/106
[2019-08-07 21:42] LABS: BASO % 1 % (0-3); EOS % 2 % (0-3); HEMATOCRIT 42.6 % (36.0-47.0); HEMOGLOBIN 13.6 g/dL (12.0-15.5); LYMPH # 0.9 x10^3/uL (1.0-4.8); LYMPH % 35 % (24-48); MEAN CORPUSCULAR HEMOGLOBIN 27 pg (25-35); MEAN CORPUSCULAR HGB CONC 32 g/dL (31-37); MEAN CORPUSCULAR VOLUME 83 fL (79-100); MONO # 0.7 x10^3/uL (0.0-1.1); MONO % 30 % (0-9); NEUT # 0.8 x10^3uL (1.8-7.7); NEUT % 33 % (31-73); PLATELET COUNT 71 x10^3/uL (140-400); RED BLOOD COUNT 5.15 x10^6/uL (3.50-5.40); RED CELL DISTRIBUTION WIDTH 24.7 % (11.5-14.5); WHITE BLOOD COUNT 2.5 x10^3/uL (4.0-11.0)
[2019-08-07 21:58] LABS: ALBUMIN 3.8 g/dL (3.4-5.0); ALK PHOS 90 U/L (46-116); ALT (SGPT) 73 U/L (14-59); ANION GAP 12 (6-14); AST (SGOT) 109 U/L (15-37); BLOOD UREA NITROGEN 11 mg/dL (7-20); CALCIUM 8.2 mg/dL (8.5-10.1); CARBON DIOXIDE 28 mmol/L (21-32); CHLORIDE 99 mmol/L (98-107); CREATININE 0.8 mg/dL (0.6-1.0); DIRECT BILIRUBIN 0.1 mg/dL (0.0-0.2); GFR 76.6; GLUCOSE 90 mg/dL (70-99); LIPASE 350 U/L (73-393); MAGNESIUM 1.8 mg/dL (1.8-2.4); POTASSIUM 3.5 mmol/L (3.5-5.1); SODIUM 139 mmol/L (136-145); TOTAL BILIRUBIN 0.3 mg/dL (0.2-1.0); TOTAL PROTEIN 7.9 g/dL (6.4-8.2)
[2019-08-07 22:15] LABS: ANISOCYTOSIS MOD; PLT ESTIMATE DECREASED (ADEQUATE)
[2019-08-07 22:16] LABS: HYPOCHROMIA PRESENT; TARGET CELLS PRESENT
--- NOTE | 2019-08-07 22:38 | RAD ---
Indication: Discomfort. TECHNIQUE:Portable AP chest X-ray COMPARISON: 07/13/2018 FINDINGS:w heart is normal in size. Lungs are clear. No pneumothorax or pleural effusion. Visualized bony thorax within normal limits. IMPRESSION: No acute pulmonary process. Electronically signed by: Krish Alvarez DO (08/07/2019 10:35 PM) [facility]
--- NOTE | 2019-08-08 07:31 | EKG ---
[address] [address] Test Date: 2019-08-07 Test Time: 21:10:10 Pat Name: SY CREWS Department: Room: Gender: F Grain Handler: : 1970 Requested By: NATALI MAURICIO Order Number: [id number] Reading MD: Measurements Intervals [place] Rate: 104 P: 62 WA: 112 QRS: -137 QRSD: 98 T: -90 QT: 346 QTc: 455 Interpretive Statements SINUS TACHYCARDIA ABNORMAL RIGHT SUPERIOR AXIS DEVIATION QRS(T) CONTOUR ABNORMALITY CONSISTENT WITH INFERIOR INFARCT AGE UNDETERMINED ABNORMAL ECG RI6.01 No previous ECG available for comparison
== END 2019-08-07 22:17 | disposition left against medical advice (07) ==
LOC: ER 20:57
DX: S80.02XA Contusion of left knee, initial encounter (principal); S80.01XA Contusion of right knee, initial encounter; S50.02XA Contusion of left elbow, initial encounter; S50.01XA Contusion of right elbow, initial encounter; S60.222A Contusion of left hand, initial encounter; S60.221A Contusion of right hand, initial encounter; F10.20 Alcohol dependence, uncomplicated; D69.6 Thrombocytopenia, unspecified; R74.8 Abnormal levels of other serum enzymes; R79.1 Abnormal coagulation profile; F41.9 Anxiety disorder, unspecified; F32.9 Major depressive disorder, single episode, unspecified; I10 Essential (primary) hypertension; F43.10 Post-traumatic stress disorder, unspecified; F17.210 Nicotine dependence, cigarettes, uncomplicated; Z88.0 Allergy status to penicillin; Z88.8 Allergy status to other drugs, medicaments and biological substances; Y90.8 Blood alcohol level of 240 mg/100 ml or more; W18.39XA Other fall on same level, initial encounter; Y93.89 Activity, other specified; Y92.89 Other specified places as the place of occurrence of the external cause; Y99.8 Other external cause status
CPT/HCPCS: 36415; 71045; 80048; 80076; 82550; 83690; 83735; 83880; 84443; 84484; 85025; 85379; 85610; 85730; 93005; 96365; 99285; G0480; J7120

== ENCOUNTER 2019-10-21 21:46 | Emergency (ER) | payer MEDICARE, OTHER ==
[~2019-10-21] VITALS: Ht 157.5 cm; Wt 59.3 kg
[2019-10-21] MEDS ORDERED: MVI, ADULT NO.4 WITH VIT K 10 ML, FOLIC ACID INJ 1 MG, THIAMINE INJ 100 MG in IV RINGER... IV ONE ×4 (22:30)
[2019-10-21] MEDS ORDERED: FOLIC ACID 1 MG TABLET PO ONE (22:45)
--- NOTE | 2019-10-21 22:57 | RAD ---
CT brain without contrast, CT maxillofacial without contrast, CT cervical spine without contrast. HISTORY: Fall, headache, neck pain, facial bruising CT brain CT scan of the brain was done without contrast. A skull fracture is not identified. There is no intracranial hemorrhage or subdural hematoma. Ventricles are normal in size. There is no mass or shift of the midline. IMPRESSION: 1. No intracranial hemorrhage or acute finding noted. End impression CT maxillofacial Axial CT images were obtained to the facial bones. Mandible is intact. Sinuses are clear throughout. A facial or orbital fracture is not identified. IMPRESSION: 1. No facial fracture noted. End impression CT cervical spine Axial CT images were obtained to the cervical spine. Sagittal and coronal reconstructed images were reviewed. There is degenerative disc disease at multiple levels in the cervical spine with hypertrophic spurring. There is no acute fracture. There is foraminal narrowing at C3-4 on the left, C4-5 bilaterally and C5-6 bilaterally. There is mild spinal stenosis secondary to the spurring, AP diameter canal measures 7.5 mm at C3-4. IMPRESSION: 1. Degenerative disc disease and hypertrophic spurring in the cervical spine. 2. No acute C-spine fracture. PQRS Compliance Statement: One or more of the following individualized dose reduction techniques were utilized for this examination: 1. Automated exposure control 2. Adjustment of the mA and/or kV according to patient size 3. Use of iterative reconstruction technique Electronically signed by: Babatunde Beckwith MD (10/21/2019 10:54 PM) [id number]
[2019-10-21] MEDS ORDERED: ONDANSETRON PF 4 MG/2 ML VIAL. IVP ONE (23:00)
[2019-10-21 23:07] LABS: BASO % 1 % (0-3); EOS % 0 % (0-3); HEMATOCRIT 43.5 % (36.0-47.0); HEMOGLOBIN 14.2 g/dL (12.0-15.5); LYMPH # 0.6 x10^3/uL (1.0-4.8); LYMPH % 15 % (24-48); MEAN CORPUSCULAR HEMOGLOBIN 27 pg (25-35); MEAN CORPUSCULAR HGB CONC 33 g/dL (31-37); MEAN CORPUSCULAR VOLUME 83 fL (79-100); MONO # 0.8 x10^3/uL (0.0-1.1); MONO % 20 % (0-9); NEUT # 2.5 x10^3uL (1.8-7.7); NEUT % 65 % (31-73); PLATELET COUNT 88 x10^3/uL (140-400); RED BLOOD COUNT 5.25 x10^6/uL (3.50-5.40); RED CELL DISTRIBUTION WIDTH 26.1 % (11.5-14.5); WHITE BLOOD COUNT 3.9 x10^3/uL (4.0-11.0)
[2019-10-21 23:11] LABS: CALCIUM 7.5 mg/dL (8.5-10.1); CREATININE 0.8 mg/dL (0.6-1.0); GFR 76.6; POTASSIUM 3.2 mmol/L (3.5-5.1)
[2019-10-21 23:18] LABS: ALBUMIN 3.8 g/dL (3.4-5.0); ALBUMIN/GLOBULIN RATIO 1.1 (1.0-1.7); MAGNESIUM 1.6 mg/dL (1.8-2.4); TOTAL PROTEIN 7.3 g/dL (6.4-8.2)
--- NOTE | 2019-10-21 23:23 | PHYS DOC ---
Past History Past Medical History: Alcoholism, Anxiety, Depression, Hypertension Past Medical History Limited secondary to ETOH intoxication Past Surgical History: Other Past Surgical History Limited secondary to ETOH intoxication Smoking: Cigarettes Alcohol Use: Heavy Drug Use: None Social History Limited secondary to ETOH intoxication Adult General Chief Complaint Chief Complaint: ALCOHOL INTOXICATION HPI HPI 48-year-old female presents via EMS with report of headache and facial pain with history of fall 2 days ago. Patient reports chronic alcoholism. Reports last drink a "handle" of vodka today. Reports has done so daily for a "long time ". Patient reports was not seen 2 days ago after the fall. Patient does appear acutely intoxicated. Denies suicidal or homicidal ideation. History of present illness limited secondary to intoxication. Review of Systems Review of Systems HENT: Reports facial pain Integument: Denies laceration Neurologic: Reports headache Review of systems limited secondary to intoxication Current Medications Current Medications Current Medications Medications (Trade) Dose Ordered Sig/Santosh Start Time Stop Time Status Last Admin Dose Admin Folic Acid (Folic Acid) 1 mg 1X ONCE 10/21/19 22:45 10/21/19 22:46 DC Lorazepam (Ativan Inj) 1 mg 1X ONCE 10/21/19 23:00 10/21/19 23:01 DC 10/21/19 22:54 1 MG Multivitamins/ Minerals 10 ml/ Folic Acid 1 mg/ Thiamine HCl 100 mg/Lactated Ringer's 1,011.3 ml @ 1,011.3 mls/hr 1X ONCE 10/21/19 22:30 10/21/19 23:29 10/21/19 22:39 1,011.3 MLS/HR Ondansetron HCl (Zofran) 4 mg 1X ONCE 10/21/19 23:00 10/21/19 23:01 DC 10/21/19 22:39 4 MG Allergies Allergies Allergies Coded Allergies Type Severity Reaction Last Updated Verified Penicillins Allergy Intermediate 02/26/18 Yes ketamine Allergy Unknown 02/26/18 Yes Physical Exam Physical Exam Constitutional: Well developed, well nourished, intoxicated, malodorous HENT: Normocephalic, ecchymosis noted to chin, oropharynx moist Eyes: PERRL, EOMI, conjunctiva injected bilaterally, no discharge, horizontal nystagmus noted Neck: Normal range of motion, no midline tenderness, supple Cardiovascular: Heart rate normal, regular rhythm Lungs & Thorax: Bilateral breath sounds clear to auscultation, no wheezing Abdomen: Soft, no tenderness; pelvis stable and nontender Skin: Warm, dry, no erythema, no rash, healing ecchymosis noted to back Extremities: No tenderness, ROM intact, no edema Neurologic: Alert and oriented X 3, normal motor function, normal sensory function, no focal deficits noted Psychologic: Intoxicated, judgment abnormal Current Patient Data Vital Signs Vital Signs Date Time Temp Pulse Resp B/P (MAP) Pulse Ox O2 Delivery O2 Flow Rate FiO2 10/21/19 22:39 109 18 132/83 (99) 94 Room Air 10/21/19 21:46 97.9 Lab Results Laboratory Tests Test 10/21/19 22:33 White Blood Count 3.9 x10^3/uL (4.0-11.0) L Red Blood Count 5.25 x10^6/uL (3.50-5.40) Hemoglobin 14.2 g/dL (12.0-15.5) Hematocrit 43.5 % (36.0-47.0) Mean Corpuscular Volume 83 fL (79-100) Mean Corpuscular Hemoglobin 27 pg (25-35) Mean Corpuscular Hemoglobin Concent 33 g/dL (31-37) Red Cell Distribution Width 26.1 % (11.5-14.5) H Platelet Count 88 x10^3/uL (140-400) L Neutrophils (%) (Auto) 65 % (31-73) Lymphocytes (%) (Auto) 15 % (24-48) L Monocytes (%) (Auto) 20 % (0-9) H Eosinophils (%) (Auto) 0 % (0-3) Basophils (%) (Auto) 1 % (0-3) Neutrophils # (Auto) 2.5 x10^3uL (1.8-7.7) Lymphocytes # (Auto) 0.6 x10^3/uL (1.0-4.8) L Monocytes # (Auto) 0.8 x10^3/uL (0.0-1.1) Eosinophils # (Auto) 0.0 x10^3/uL (0.0-0.7) Basophils # (Auto) 0.0 x10^3/uL (0.0-0.2) Platelet Estimate Pending EKG EKG [] Radiology/Procedures Radiology/Procedures PROCEDURE: CT HEAD WO CONTRAST, CERVICAL SPINE WO CONTRAST, & MAXILLOFACIAL WO CONTRAST CT brain without contrast, CT maxillofacial without contrast, CT cervical spine without contrast. HISTORY: Fall, headache, neck pain, facial bruising CT brain CT scan of the brain was done without contrast. A skull fracture is not identified. There is no intracranial hemorrhage or subdural hematoma. Ventricles are normal in size. There is no mass or shift of the midline. IMPRESSION: 1. No intracranial hemorrhage or acute finding noted. End impression CT maxillofacial Axial CT images were obtained to the facial bones. Mandible is intact. Sinuses are clear throughout. A facial or orbital fracture is not identified. IMPRESSION: 1. No facial fracture noted. End impression CT cervical spine Axial CT images were obtained to the cervical spine. Sagittal and coronal reconstructed images were reviewed. There is degenerative disc disease at multiple levels in the cervical spine with hypertrophic spurring. There is no acute fracture. There is foraminal narrowing at C3-4 on the left, C4-5 bilaterally and C5-6 bilaterally. There is mild spinal stenosis secondary to the spurring, AP diameter canal measures 7.5 mm at C3-4. IMPRESSION: 1. Degenerative disc disease and hypertrophic spurring in the cervical spine. 2. No acute C-spine fracture. PQRS Compliance Statement: One or more of the following individualized dose reduction techniques were utilized for this examination: 1. Automated exposure control 2. Adjustment of the mA and/or kV according to patient size 3. Use of iterative reconstruction technique Electronically signed by: Babatunde Beckwith MD (10/21/2019 10:54 PM) [id number] Course & Med Decision Making Course & Med Decision Making Pertinent Labs and Imaging studies reviewed. (See chart for details) Patient with chronic alcoholism presents with history of fall onto face 2 days ago and for alcohol abuse. Reports headache. Patient does appear acutely intoxicated. CT head/maxillofacial/cervical spine without acute process. Banana bag provided. Symptomatic Ativan also given. Labs obtained and posted to chart. Hypomagnesemia and hypokalemia addressed. IV line was accidentally pulled out by patient prior to completion of magnesium IVPB. Oral magnesium and oral potassium given. Patient unable to provide UA or UDS. Denies symptoms of UTI and denies drug use. UA and UDS therefore cancelled. Patient monitored in the emergency department until clinically sober. Patient stable for discharge with outpatient follow-up with PCP. Resources provided for detox. Discussed findings and plan with patient, who acknowledges understanding and agreement. Dragon Disclaimer Dragon Disclaimer This electronic medical record was generated, in whole or in part, using a voice recognition dictation system. Departure Departure: Impression: Primary Impression: Alcohol abuse Additional Impressions: Hypomagnesemia Hypokalemia Disposition: 01 HOME, SELF-CARE Condition: STABLE Referrals: GINA MCDOWELL MATHEMATICS TEACHER (PCP) Patient Instructions: Alcohol, FAQs, Chronic Alcoholism, How Much is Too Much Alcohol, [id number], Hypokalemia-Brief, Hypomagnesemia Problem Qualifiers MOSHE ZAVALA DO Oct 21, 2019 23:23
[2019-10-21 23:26] LABS: ANISOCYTOSIS MOD; PLT ESTIMATE DECREASED (ADEQUATE)
[2019-10-21] MEDS ORDERED: MAGNESIUM SULFATE 2GM 50 ML IV ONE (23:45)
[2019-10-21] MEDS ORDERED: POTASSIUM CHLORIDE 20 MEQ TABLET.ER. PO ONE (23:45)
[2019-10-22 01:30] VITALS: BP 120/67
[2019-10-22] MEDS ORDERED: MAGNESIUM CHLORIDE ER 64 MG TABLET.ER PO ONE (01:30)
== END 2019-10-22 01:45 | disposition home or self-care (01) ==
LOC: ER 21:46
DX: F10.20 Alcohol dependence, uncomplicated (principal); E83.42 Hypomagnesemia; E87.6 Hypokalemia; F17.210 Nicotine dependence, cigarettes, uncomplicated; Z88.0 Allergy status to penicillin; Z88.8 Allergy status to other drugs, medicaments and biological substances; Y90.9 Presence of alcohol in blood, level not specified
CPT/HCPCS: 36415; 70450; 70486; 72125; 80053; 83690; 83735; 85025; 85610; 85730; 96365; 96366; 96375; 99285; J2060; J2405; J3475; J7120

== ENCOUNTER 2020-06-01 10:22 | Inpatient (IN) | payer MEDICARE ==
[~2020-06-01] VITALS: Ht 157.5 cm; Wt 59.8 kg
[2020-06-01] VITALS (9 sets, daily range): BP systolic 124–162; BP diastolic 78–91
[2020-06-01] MEDS ORDERED: MVI, ADULT NO.4 WITH VIT K 10 ML, FOLIC ACID INJ 1 MG, THIAMINE INJ 100 MG in IV NORMAL... IV ONE (10:30)
--- NOTE | 2020-06-01 11:15 | PHYS DOC ---
Past History Past Medical History: Alcoholism, Anxiety, Depression, Hypertension Additional Past Medical Histor: Delirium tremens Past Surgical History: Other Additional Past Surgical Histo: foot fx Smoking: Non-smoker Alcohol Use: Heavy Drug Use: None General Adult EDM: Chief Complaint: WITHDRAWAL HPI: HPI: Patient is a 49 year old with history of alcohol abuse presents via EMS with concern for ETOH withdrawal symptoms. Patient reports tremors that began about 24 hours ago after consumption of last drink of ETOH. Pt states a history of drinking a fifth of vodka a day along with a pint of fireball. Pt states that she has had hallucinations and seizures secondary to alcohol detox in the past. She states that laying on her side will improves the tremors. She also states that a few days ago she fell and hit the back of her head on a table. Pt denies any MENENDEZ, vision, sensory changes, or weakness. Pt denies use of blood thinners. EMS reports patient initial blood glucose down to 65. EMS provided oral glucose prior to arrival. Review of Systems: Review of Systems: Constitutional: Denies fever or chills Eyes: Denies redness or eye pain HENT: Denies nasal congestion or sore throat; reports head contusion Respiratory: Denies cough or shortness of breath Cardiovascular: Denies chest pain or palpitations GI: Denies abdominal pain, nausea, or vomiting : Denies dysuria or hematuria Musculoskeletal: Denies back pain or joint pain Integument: Denies rash or skin lesions Neurologic: Denies headache or sensory changes; reports tremors Complete systems were reviewed and found to be within normal limits, except as documented in this note. Current Medications: Current Meds: Current Medications Medications (Trade) Dose Ordered Sig/Santosh Start Time Stop Time Status Last Admin Dose Admin Lorazepam (Ativan Inj) 1 mg 1X ONCE 06/01/20 11:00 06/01/20 11:01 DC 06/01/20 10:58 1 MG Multivitamins/ Minerals 10 ml/ Folic Acid 1 mg/ Thiamine HCl 100 mg/Sodium Chloride 1,011.3 ml @ 1,000.187 mls/hr 1X ONCE 06/01/20 10:30 06/01/20 11:30 06/01/20 10:58 1,000.187 MLS/HR Allergies: Allergies: Allergies Coded Allergies Type Severity Reaction Last Updated Verified Penicillins Allergy Intermediate 02/26/18 Yes Sulfa (Sulfonamide Antibiotics) Allergy Unknown 06/01/20 Yes ketamine Allergy Unknown 02/26/18 Yes Physical Exam: PE: Constitutional: Tremulous while resting in bed, well-developed. HENT: Normocephalic, pain to palpation of posterior midline of head Eyes: EOMI, conjunctiva normal, no discharge Neck: Normal range of motion, supple, no midline cervical spine tenderness Lungs & Thorax: No respiratory distress, equal chest rise and fall Abdomen: Soft, no tenderness Skin: Warm, dry, no erythema, no rash Back: No tenderness, no CVA tenderness Extremities: No tenderness, no edema, tremors in all extremities. Neurologic: Alert and oriented X 3, normal sensory function, no focal deficits noted Psychologic: Affect anxious, judgment normal Current Patient Data: Vital Signs: Vital Signs Date Time Temp Pulse Resp B/P (MAP) Pulse Ox O2 Delivery O2 Flow Rate FiO2 06/01/20 10:27 97.8 113 16 145/89 (107) 95 Room Air EKG: EKG: @11:14 Normal sinus rhythm at [address] elevations or T wave inversions. QRS 102 ms, QT 360 ms, QTc 462 ms. Radiology/Procedures: Radiology/Procedures: PROCEDURE: CT HEAD AND CERVICAL SPINE WO EXAM: CT head and cervical spine without contrast INDICATION: Headache, history of fall, alcohol abuse COMPARISON: CT head and C-spine 10/21/2019 TECHNIQUE: Axial CT imaging through the head without intravenous contrast. Coronal and sagittal reformats of the cervical spine were obtained One or more of the following individualized dose reduction techniques were utilized for this examination: 1. Automated exposure control 2. Adjustment of the mA and/or kV according to patient size 3. Use of iterative reconstruction technique. FINDINGS: CT head: The ventricles and sulci are mildly enlarged. [place]-white matter differentiation is maintained. There is no intracranial hemorrhage, acute infarct, or mass lesion. Basal cisterns are clear. The skull and scalp are intact. Paranasal sinuses and mastoid air cells are clear. Globes and orbits are intact.. CT cervical spine: No acute fracture. There is straightening of lordosis. Trace retrolisthesis of C3 on C4 and C4 on C5. There is unchanged [id number] disc space narrowing throughout the cervical spine with small anterior osteophytes at multiple levels. There are multiple disc osteophyte complexes, greatest at C3-C4. Multilevel foraminal narrowing related to uncovertebral joint proliferation, greatest at C4-C5 where it is severe. Prevertebral soft tissue is normal. IMPRESSION: No acute intracranial abnormality or acute osseous abnormality of the cervical spine. Electronically signed by: Kiesha Castaneda MD (06/01/2020 11:45 AM) [id number] Course & Med Decision Making: Course & Med Decision Making Pertinent Labs and Imaging studies reviewed. (See chart for details) Patient with history of alcohol abuse presents with HPI and physical exam concerning for withdrawal symptoms. Patient reports history of delirium tremens. Ativan provided. EMS reports patient's blood sugar down to 65 and had provided oral glucose prior to arrival to the emergency department. Labs obtained and posted to chart. Hypomagnesemia addressed. Glucose currently stable. LFTs elevated. CT head/cervical spine without acute process. Patient requiring admission for further evaluation and treatment given concern for possible impending delirium tremens. Discussed with Dr. Patterson (hospitalist) who is in agreement with admission to ICU. Discussed findings and plan with patient, who acknowledges understanding and agreement. Dragon Disclaimer: Dragon Disclaimer: This electronic medical record was generated, in whole or in part, using a voice recognition dictation system. Departure Departure: Impression: Primary Impression: Alcohol abuse Additional Impressions: Impending delirium tremens Hypoglycemia Disposition: ADMITTED INPATIENT Admitting Physician: Rosa Patterson Condition: GUARDED Referrals: PCP,JUAN (PCP) Critical Care Time Critical care time was 30 minutes which includes time at bedside, spent in discussion of patient's care with specialists and/or family members, with interpretation of laboratory and/or radiological studies and is exclusive of procedures. MOSHE ZAVALA DO Jun 01, 2020 11:15
[2020-06-01 11:19] LABS: CREATININE 0.9 mg/dL (0.6-1.0); GFR 66.5; POTASSIUM 3.7 mmol/L (3.5-5.1)
[2020-06-01 11:24] LABS: ALBUMIN 3.8 g/dL (3.4-5.0); ALBUMIN/GLOBULIN RATIO 0.9 (1.0-1.7); TOTAL BILIRUBIN 0.9 mg/dL (0.2-1.0); TOTAL PROTEIN 8.1 g/dL (6.4-8.2)
[2020-06-01 11:25] LABS: ETHANOL 48 mg/dL (0-10); SALIC < 2.8 mg/dL (2.8-20.0)
[2020-06-01 11:26] LABS: ACETAMIN < 2.0 mcg/mL (10-30)
--- NOTE | 2020-06-01 11:48 | RAD ---
EXAM: CT head and cervical spine without contrast INDICATION: Headache, history of fall, alcohol abuse COMPARISON: CT head and C-spine 10/21/2019 TECHNIQUE: Axial CT imaging through the head without intravenous contrast. Coronal and sagittal reformats of the cervical spine were obtained One or more of the following individualized dose reduction techniques were utilized for this examination: 1. Automated exposure control 2. Adjustment of the mA and/or kV according to patient size 3. Use of iterative reconstruction technique. FINDINGS: CT head: The ventricles and sulci are mildly enlarged. Ru[place]caba-white matter differentiation is maintained. There is no intracranial hemorrhage, acute infarct, or mass lesion. Basal cisterns are clear. The skull and scalp are intact. Paranasal sinuses and mastoid air cells are clear. Globes and orbits are intact.. CT cervical spine: No acute fracture. There is straightening of lordosis. Trace retrolisthesis of C3 on C4 and C4 on C5. There is unchanged [id number] disc space narrowing throughout the cervical spine with small anterior osteophytes at multiple levels. There are multiple disc osteophyte complexes, greatest at C3-C4. Multilevel foraminal narrowing related to uncovertebral joint proliferation, greatest at C4-C5 where it is severe. Prevertebral soft tissue is normal. IMPRESSION: No acute intracranial abnormality or acute osseous abnormality of the cervical spine. Electronically signed by: Kiesha Castaneda MD (06/01/2020 11:45 AM) [id number]
[2020-06-01 11:50] LABS: BASO % 1 % (0-3); EOS % 1 % (0-3); HEMATOCRIT 36.7 % (36.0-47.0); HEMOGLOBIN 11.6 g/dL (12.0-15.5); LYMPH # 0.2 x10^3/uL (1.0-4.8); LYMPH % 7 % (24-48); MEAN CORPUSCULAR HEMOGLOBIN 24 pg (25-35); MEAN CORPUSCULAR HGB CONC 32 g/dL (31-37); MONO # 0.4 x10^3/uL (0.0-1.1); MONO % 14 % (0-9); NEUT # 2.4 x10^3uL (1.8-7.7); NEUT % 77 % (31-73); PLATELET COUNT 73 x10^3/uL (140-400); RED BLOOD COUNT 4.83 x10^6/uL (3.50-5.40); WHITE BLOOD COUNT 3.1 x10^3/uL (4.0-11.0)
[2020-06-01 11:54] LABS: MEAN CORPUSCULAR VOLUME 76 fL (79-100)
[2020-06-01] MEDS ORDERED: MAGNESIUM SULFATE 2GM 50 ML IV ONE (12:15)
[2020-06-01] MEDS ORDERED: KETOROLAC 15 MG/ML VIAL. IVP ONE (12:15)
[2020-06-01] MEDS ORDERED: FAMOTIDINE 20 MG/2 ML VIAL IVP ONE (12:15)
[2020-06-01] MEDS ORDERED: DEXTROSE 50% 25 GM / 50ML DISP.SYRIN. IV PRN (13:00)
[2020-06-01] MEDS ORDERED: ONDANSETRON PF 4 MG/2 ML VIAL. IVP PRN (13:00)
[2020-06-01 14:22] LABS: PLT ESTIMATE DECREASED (ADEQUATE)
[2020-06-01] MEDS ORDERED: HALOPERIDOL LACT 5 MG/ML VIAL. IM PRN (15:15)
[2020-06-01] MEDS ORDERED: cloNIDine HCL 0.1 MG TABLET PO PRN (15:15)
[2020-06-01] MEDS ORDERED: chlordiazePOXIDE HCL 25 MG CAPSULE PO PRN (15:15)
[2020-06-01] MEDS ORDERED: diphenhydrAMINE 50 MG/ML VIAL IVP PRN (15:15)
[2020-06-01] MEDS: chlordiazePOXIDE HCL 25 MG CAPSULE PO PRN ×2 (15:39→20:43)
--- NOTE | 2020-06-01 15:45 | NUR ---
Rakel Altman a 49 yo female was admitted to ICU-1, inpatient ICU status, Dr. Patterson service, for alcohol withdraw, with hx of seizure with DT's. Patient settled into room, admission assessment and process completed. Pt connected to monitors, side rails padded for seizure precautions. Dr. Patterson on unit to see patient. Pt's CIWA was > 9 upon arrival, Librium and Ativan per ETOH withdrawl protocol. Pt was provided written copies of hospital and unit pokicies and procedures.
[2020-06-01] MEDS ORDERED: SUMAtriptan SUCCINATE 50 MG TABLET PO PRN (17:15)
--- NOTE | 2020-06-01 18:44 | HP ---
ADMIT DATE: 06/01/2020 HISTORY OF PRESENT ILLNESS: The patient is a 49-year-old female patient who basically has a history of alcohol abuse, presented after calling 911 with tremors that began about 24 hours ago after she consumed her last drink. She states that she has been drinking a fifth of vodka a day along with a pint of Fireball. She states that she has had hallucination and seizure secondary to alcohol detoxification in the past. She stated that lying on her side will improve the tremor. She also stated that a few days ago, she fell and hit the back of her head on the table. She denied any headache, vision problem, sensory changes or weakness. Denied use of any blood thinners. She was extensively evaluated in the Emergency Room, has had an EKG, which showed that she was in sinus rhythm at 99 beats per minute with no ST segment elevation or depression. Her CT scan of the head and cervical spine showed basically no acute intracranial abnormality or acute osseous abnormality of the cervical spine and has had extensive lab work, which showed that she has hypomagnesemia and elevated liver enzymes; however, her prothrombin time, INR and aPTT were normal. Toxic screen essentially showed blood alcohol level of 48 mg, and the patient was admitted to be treated for alcohol withdrawal. PAST MEDICAL HISTORY: Significant for malignant hyperthermia, migraine, osteoarthritis. PAST SURGICAL HISTORY: Significant for compound fracture of her right foot. ALLERGIES: SHE IS ALLERGIC TO PENICILLIN AND SULFA DRUGS. MEDICATIONS: She is on following medications: She is on nicotine patch 21 mg daily, simvastatin 20 mg at bedtime, amitriptyline 75 mg at bedtime, doxepin 100 mg at bedtime, venlafaxine 75 mg, lorazepam 1 mg 4 times a day, rizatriptan benzoate 10 mg daily for migraine headache, naphazoline drops 4 times a day, folic acid 1 mg once a day, and cholecalciferol vitamin D 10,000 units 2 tablets once a day. FAMILY HISTORY: Has one brother who is adopted and ____. Father still alive at the age of 90 and has had coronary artery bypass graft surgery. Her mother at age of 67 due to gallbladder cancer. SOCIAL HISTORY: She lives alone. She does not smoke, however, chew tobacco. She is currently 100% disabled . She drinks a fifth of vodka with sometimes [place] and Fireball. REVIEW OF SYSTEMS: As per history of present illness. PHYSICAL EXAMINATION: GENERAL: On arrival to the Emergency Room, she looked well and was clearly in no apparent respiratory distress. No pallor, jaundice, cyanosis or thyromegaly. No jugular venous distention. No limb edema. VITAL SIGNS: Her heart rate was 113, blood pressure 145/89, temperature was 97.8, respiratory rate was 16, and oxygen saturation was 95%. HEAD, EYES, EARS, NOSE AND THROAT: Normocephalic, atraumatic. NECK: Supple. CARDIAC: Normal first and second heart sounds. No gallop, rub or murmur. CHEST: Clear to auscultation. No crepitation or rhonchi. ABDOMEN: Distended, soft, nontender. NEUROLOGIC: She was awake, alert, responding appropriately. All cranial nerves intact. EXTREMITIES: She moves extremities without difficulty. She is very weak and very unsteady on her feet and very tremulous. LABORATORY DATA: Her lab work on arrival showed a white cell count of 3100, hemoglobin 11.6, hematocrit 36.7, MCV 76 and platelet count of 73,000 with a manual differential shows 77% polymorphs, 7% lymphocytes, 14% monocytes. Her chemistry showed a serum sodium 134, potassium 3.7, chloride 92, bicarbonate 16, anion gap of 26, BUN 15, creatinine was 0.9, estimated GFR was 66 mL per minute. Her glucose was 91, calcium was 9, magnesium was 1.7. Total bilirubin and alkaline phosphatase normal. AST, ALT are elevated. Total protein was 8.1, albumin was 3.8. Lipase was 331. Her CT scan of the head and cervical spine showed that the ventricles and sulci are mildly enlarged. The diaz white matter differentiation is maintained. There is no intracranial hemorrhage, acute infarct or mass lesion. Basal cisterns are clear. The skull and scalp are intact. Paranasal sinuses and mastoid air cells are clear. Globes and orbits are intact. Cervical spine showed no acute fracture. There is straightening of the lordosis, trace retrolisthesis of C3 on C4 and C4 on C5. There is unchanged pgrc-oe-[id number] disk space narrowing throughout the cervical spine with small anterior osteophytes at multiple levels. There are multiple disk osteophyte complexes, greatest at C3-C4; multiple foraminal narrowing related to uncovertebral joint proliferation greatest at C4-C5, where it is severe. Prevertebral soft tissues are normal. ASSESSMENT AND PLAN: The patient was admitted with alcohol withdrawal, started on alcohol withdrawal protocol. Her other medical problems include malignant hypertension, migraine headache, and ostarthritis. KAMRAN GARCIA MD DR: MICHAEL/josey JOB#: [id number] / [id number]
--- NOTE | 2020-06-01 21:09 | EKG ---
[address] [address] Test Date: 2020-06-01 Test Time: 11:14:28 Pat Name: SY CREWS Department: Room: Gender: F Kersey Department Supervisor: NAYE : 1970 Requested By: MOSHE ZAVALA Order Number: [id number] Reading MD: Measurements Intervals Bunch Rate: 99 P: 70 TN: 134 QRS: 64 QRSD: 102 T: 51 QT: 360 QTc: 462 Interpretive Statements SINUS RHYTHM NORMAL ECG RI6.02 No previous ECG available for comparison
[2020-06-02] VITALS (19 sets, daily range): BP systolic 93–151; BP diastolic 54–92
[2020-06-02] MEDS: chlordiazePOXIDE HCL 25 MG CAPSULE PO PRN ×3 (04:30→22:00)
--- NOTE | 2020-06-02 05:46 | NUR ---
Shift Note: Pt is a/o x4 (CIWA has been 23 throughout night, significant tremors noted) (Librium and Ativan given alternating), pt has had no c/o nausea, pt has continued to c/o generalized body aches and pains, pt voiding clear yellow urine via bed rivera as pt does not feel "he" can stand safely (per pt, "he" was born female (Rakel) and has been taking hormones for 10 years and has had breast reduction surgery, pt prefers to be called Tiana and be referred to as a man). Pt has been pleasant and taking part in discussing his plan of care.
[2020-06-02 08:22] LABS: HEMOGLOBIN 10.2 g/dL (12.0-15.5); RED BLOOD COUNT 4.26 x10^6/uL (3.50-5.40); RED CELL DISTRIBUTION WIDTH 22.3 % (11.5-14.5); WHITE BLOOD COUNT 3.2 x10^3/uL (4.0-11.0)
[2020-06-02 10:00] LABS: ALBUMIN 3.3 g/dL (3.4-5.0); ALBUMIN/GLOBULIN RATIO 0.9 (1.0-1.7); CALCIUM 8.9 mg/dL (8.5-10.1); CREATININE 0.7 mg/dL (0.6-1.0); GFR 88.9; POTASSIUM 3.6 mmol/L (3.5-5.1); TOTAL BILIRUBIN 0.8 mg/dL (0.2-1.0); TOTAL PROTEIN 7.1 g/dL (6.4-8.2)
[2020-06-02] MEDS: MVI, ADULT NO.4 WITH VIT K 10 ML, THIAMINE INJ 100 MG, FOLIC ACID INJ 1 MG in IV NORMAL... IV SCH (11:41)
[2020-06-02] MEDS ORDERED: POLYETHYLENE GLYCOL 3350 17 GM PACKET. PO PRN (16:45)
--- NOTE | 2020-06-02 17:59 | NUR ---
SHIFT NOTE: Pt A&Ox4. CIWA has ranged but peaked at 23. alternated Ativan and Librium with severe tremors noted. Pt able to get to toilet a few times today with assistance by RN and tremors noted to make gait unsteady. Does report some constipation "I havent went in a couple days...I am miserable" Miralax was ordered and given (see eMAR). No complaints of pain or nausea, but some numbness/tingling in hands and feet (pt states this is normal for him during withdrawal).
--- NOTE | 2020-06-02 19:58 | PN ---
DATE: 06/02/2020 SUBJECTIVE: The patient is a female patient, who underwent bilateral mastectomy as a transgender, was admitted with alcohol withdrawal and also recurrent falls. He was basically started on banana bag and alcohol withdrawal protocol. When I saw him today, he looked well and was clearly in no apparent respiratory distress; however, he continued to be very tremulous and unsteady. PHYSICAL EXAMINATION: GENERAL: When I examined him, he looked well. He was pale. No jaundice, cyanosis or thyromegaly. No jugular venous distention. No limb edema. VITAL SIGNS: His heart rate was 98, blood pressure was 128/79, temperature was 98.7, respiratory rate 12 and oxygen saturation was 97%. HEAD, EYES, EARS, NOSE, AND THROAT: Showed normocephalic. NECK: Supple. HEART: Showed normal first and second heart sounds. No gallop or murmur. CHEST: Clear to auscultation. No crepitation or rhonchi. ABDOMEN: Distended, soft, nontender. NEUROLOGIC: He was awake, alert. All his cranial nerves are intact. He moves extremities without difficulty. He was markedly tremulous, although slightly less than yesterday. His intake was 1040, no output was recorded. LABORATORY DATA: His lab work this morning showed a white cell count of 3200, hemoglobin 10, hematocrit 33, MCV 77, and platelet count of 58,000. His chemistry showed a serum sodium 134, potassium 3.6, chloride 95, bicarbonate 19, anion gap of 20, BUN of 15, creatinine 0.7, estimated GFR was 88 mL per minute, his glucose was 79, calcium was 8.9, magnesium was 2. Total bilirubin and alkaline phosphatase were normal. AST and ALT elevated, but trending down. His total protein was 7.1, albumin was 3.3. ASSESSMENT: 1. Alcohol dependence and alcohol withdrawal. 2. Other medical problems includes migraine headache. 3. Malignant hyperthermia. 4. Generalized osteoarthritis. PLAN: To continue with the banana bag. Continue with alcohol withdrawal protocol. Continue to monitor his electrolyte and replenish them as needed. We will start the process of physical and occupational therapy. KAMRAN GARCIA MD DR: MICHAEL/josey JOB#: [id number] / [id number]
[2020-06-03] VITALS (13 sets, daily range): BP systolic 100–142; BP diastolic 65–98
[2020-06-03] MEDS: chlordiazePOXIDE HCL 25 MG CAPSULE PO PRN ×4 (02:01→12:19)
--- NOTE | 2020-06-03 05:09 | NUR ---
IV was accidently pulled out by pt, new IV started, seven sticks prior to obtaining a 24 ga in the right FA.
--- NOTE | 2020-06-03 05:18 | NUR ---
Shift Note: Pt is a/o x4 (anxious, agitated at times/verbally aggressive at times, tremors, unsteady gait), CIWA score >15 during night (ativan and librium administered to help w/withdrawal symptoms), pt had one period of incontinence during night, pt eating and drinking w/o any n/v, pt did have one c/o headache during night (imitrex given), pt wanting to order items and have them delivered to hospital (advised pt that would not be allowed), pt wanting to order food from the outside and have it delivered (advised pt he is in the ICU and on a specific diet).
[2020-06-03 06:24] LABS: HEMATOCRIT 36.6 % (36.0-47.0); HEMOGLOBIN 11.4 g/dL (12.0-15.5); RED BLOOD COUNT 4.69 x10^6/uL (3.50-5.40); RED CELL DISTRIBUTION WIDTH 22.8 % (11.5-14.5); WHITE BLOOD COUNT 3.8 x10^3/uL (4.0-11.0)
[2020-06-03 06:43] LABS: ALBUMIN 3.6 g/dL (3.4-5.0); ALBUMIN/GLOBULIN RATIO 0.9 (1.0-1.7); CALCIUM 9.3 mg/dL (8.5-10.1); CREATININE 0.8 mg/dL (0.6-1.0); GFR 76.2; POTASSIUM 3.4 mmol/L (3.5-5.1); TOTAL BILIRUBIN 0.7 mg/dL (0.2-1.0); TOTAL PROTEIN 7.4 g/dL (6.4-8.2)
[2020-06-03] MEDS: MVI, ADULT NO.4 WITH VIT K 10 ML, THIAMINE INJ 100 MG, FOLIC ACID INJ 1 MG in IV NORMAL... IV SCH (08:01)
--- NOTE | 2020-06-03 13:33 | NUR ---
PT PUSHED CALL LIGHT, WANTED TO GET MONITOR OFF AND GET DRESSED, STATES HE WAS TOLD MAYBE HE WOULD DISCHARGE TODAY OR TOMORROW AND HE WANTED TO GO AHEAD AND GO HOME. EXPLAINED TO HIM THAT HE DID NOT HAVE DISCHARGE ORDERS YET, HE STATES HE DOES NOT WANT TO GO AMA BUT HE DOES WANT TO LEAVE. TOLD HIM IS IN THE BUILDING AND WOULD BE IN TO SEE HIM SOON AND HE COULD DISCUSS IT THEN. HE AGREED TO THIS
--- NOTE | 2020-06-03 14:43 | NUR ---
PT CALLED NURSE INTO ROOM, STATED HE CAN'T WAIT FOR THE DR ANY LONGER AND WANTS TO LEAVE AMA. PT STATES HE IS JUST MISERABLE AND WOULD RATHER BE MISERABLE AT HOME. PT ASKED EARLIER ABOUT A CAB WHEN DISCHARGED, INFORMED HIM IF HE LEAVES AMA I CAN NOT HELP HIM GET TRANSPORTATION, HE STATES HE WILL CALL A CAB. INFORMED DR GARCIA, HOUSE SUP AND SECURITY. PT SIGNED AMA PAPER, PIV AND TELE DC'D. PT GETTING DRESSED.
== END 2020-06-03 15:01 | disposition left against medical advice (07) | DRG 641 ==
LOC: ER 10:22 → ICU 12:25
PROVIDERS: ADMIT Internal Medicine; ATTEND Internal Medicine
DX: E87.1 Hypo-osmolality and hyponatremia (principal); F10.239 Alcohol dependence with withdrawal, unspecified; I10 Essential (primary) hypertension; G43.909 Migraine, unspecified, not intractable, without status migrainosus; Z88.0 Allergy status to penicillin; Z88.2 Allergy status to sulfonamides; Z53.29 Procedure and treatment not carried out because of patient's decision for other reasons; F41.9 Anxiety disorder, unspecified; Z79.899 Other long term (current) drug therapy; R50.9 Fever, unspecified; M15.9 Polyosteoarthritis, unspecified; Z90.13 Acquired absence of bilateral breasts and nipples; Z95.1 Presence of aortocoronary bypass graft; Z60.2 Problems related to living alone; Z80.0 Family history of malignant neoplasm of digestive organs; Z72.0 Tobacco use; Y90.2 Blood alcohol level of 40-59 mg/100 ml; W22.03XA Walked into furniture, initial encounter; R29.6 Repeated falls; E83.42 Hypomagnesemia; E16.2 Hypoglycemia, unspecified; F32.9 Major depressive disorder, single episode, unspecified
CPT/HCPCS: 36415; 70450; 72125; 80053; 80329; 82140; 83690; 83735; 85025; 85027; 85610; 85730; 93005; 96374; 96375; 96376; G0480; J1885; J2060; J3475; J3490; 97530; 99291-25; J7030

== ENCOUNTER 2020-11-13 00:47 | Inpatient (IN) | payer MEDICARE ==
[~2020-11-13] VITALS: Ht 157.5 cm; Wt 55.0 kg
--- NOTE | 2020-11-13 00:52 | PHYS DOC ---
Past History Past Medical History: Alcoholism, Anxiety, Depression, Hypertension Additional Past Medical Histor: Delirium tremens Past Surgical History: Other Additional Past Surgical Histo: foot fx Past Surgical History Bilateral mastectomy Smoking: Non-smoker Alcohol Use: Heavy Drug Use: None General Adult EDM: Chief Complaint: ALCOHOL INTOXICATION HPI: HPI: " I feel like I going into alcohol withdrawal...I am shaking ... can't stand up...".." I ve done this before ... when I stop drinking.. even before I get sober... I get the shakes...sometimes to the point of having a seizure...'.." I know you seen me before... I usually leave against medical advice.. but I am in a bad way today.. I will stay.. if you can prevent me from seizing.. any way .. I can't walk .. because I am so weak.. and shaking so much..." Patient is a 49 year old female attempting transition to male who presents with above hx and complaints of alcohol intoxication. Patient normally follows at the [facility]. Patient has a long history of alcohol abuse. Patient does give a history of previous episodes of alcohol withdrawal and alcohol withdrawal seizures. Patient normally consumes approximately 1/5 of alcohol a day usually vodka, wild turkey burbon, or sometime fire ball. Patient states when she attempts to quit drinking she develops tremors, hallucinations, and if she does not start redrinking or start alcohol withdrawal meds she developed seizures. Patient states she has had increase peripheral sensory loss in her feet and increased weakness. Has been falling frequently and currently has multiple contusions to her lower legs. Patient's last admission here for severe alcohol withdrawal episode was on 06/01/2020. At that time her blood alcohol was at 48. Patient has history of malignant hyperthermia, migraines, osteoarthritis. Has approximately attempted conversion to male anatomy by having mastectomy bilaterally. Patient does have a significant allergy to penicillin and sulfa meds. Patient does continue to smoke cigarettes. Patient has had periods of somewhat prolonged sobriety in between long binges of alcohol abuse. Review of Systems: Review of Systems: Constitutional: Denies fever or chills Eyes: Denies change in visual acuity HENT: Denies nasal congestion or sore throat Respiratory: Denies cough or shortness of breath Cardiovascular: Denies chest pain or edema GI: Denies abdominal pain, nausea, vomiting, bloody stools or diarrhea : Denies dysuria Musculoskeletal: Denies back pain or joint pain Integument: Denies rash Neurologic: Complains of generalized weakness, tremors, peripheral neuropathy. Endocrine: Denies polyuria or polydipsia Lymphatic: Denies swollen glands Psychiatric: History of depression, anxiety Family History: Family History: There is a history of brother who is adopted. Father lived past the age of 90 and had history of coronary artery disease with coronary artery bypass grafting. Her mother at age 67 due to gallbladder cancer.. Patient lives alone. Is 100% disabled . Current Medications: Current Meds: See nursing for home medications Allergies: Allergies: Allergies Coded Allergies Type Severity Reaction Last Updated Verified Penicillins Allergy Intermediate 02/26/18 Yes Sulfa (Sulfonamide Antibiotics) Allergy Unknown 06/01/20 Yes ketamine Allergy Unknown 02/26/18 Yes Physical Exam: PE: Constitutional: in acute distress, anxious, agitated, appears to be in early alcohol withdrawal HENT: Normocephalic, atraumatic, bilateral external ears normal, oropharynx dry,, no oral exudates, nose normal. [] Eyes: PERRLA, EOMI, conjunctiva injected, no discharge. [] Neck: Normal range of motion, no tenderness, supple, no stridor. [] Cardiovascular: Tachycardia heart rate regular rhythm, no murmur [] Lungs & Thorax: Bilateral breath sounds equal apex with scattered wheezes on auscultation [. Patient] does have mastectomy scars bilaterally Abdomen: Bowel sounds decreased, soft, no tenderness, no masses, no pulsatile masses. [] Skin: Warm, dry, no erythema, no rash. Poor turgor. Has multiple contusions to the lower limbs in different stages of healing Back: No tenderness, no CVA tenderness. [] Extremities: No tenderness, no cyanosis, no clubbing, moves all extremities on command, no edema. [] Neurologic: Alert and oriented X 3, moves all extremities on request, does have noted sensory loss in her lower limbs and feet, no new focal deficits noted per patient. Marked tremors.. Hyper reflexia - 3-4 beats clonus DTR at patella. Psychologic: Affect anxious, judgement normal, mood depressed however denies suicidal ideation EKG: EKG: [] Radiology/Procedures: Radiology/Procedures: [] Heart Score: C/O Chest Pain: N/A Risk Factors: Risk Factors: DM, Current or recent (<one month) smoker, HTN, HLP, family history of CAD, obesity. Risk Scores: Score 0 - 3: 2.5% MACE over next 6 weeks - Discharge Home Score 4 - 6: 20.3% MACE over next 6 weeks - Admit for Clinical Observation Score 7 - 10: 72.7% MACE over next 6 weeks - Early Invasive Strategies Course & Med Decision Making: Course & Med Decision Making Pertinent Labs and Imaging studies reviewed. (See chart for details) Discussed presentation, testing and treatment plan with Dr. Stark. Admit to his service with a [facility] order set. Impression: 1. Hx. ETOH withdrawal 2. Falling 3. Contusions 4. Hypotension 5. Urinary tract infection 6. Thrombocytopenia 58 [] Dragon Disclaimer: Dragon Disclaimer: This electronic medical record was generated, in whole or in part, using a voice recognition dictation system. Departure Departure: Referrals: PCP,NO (PCP) Dragivy Disclaimer This chart was dictated in whole or in part using Voice Recognition software in a busy, high-work load, and often noisy Emergency Department environment. It may contain unintended and wholly unrecognized errors or omissions. NATALI MAURICIO MD Nov 13, 2020 00:52
[2020-11-13] MEDS ORDERED: MVI, ADULT NO.4 WITH VIT K 10 ML, FOLIC ACID INJ 1 MG, THIAMINE INJ 100 MG in IV RINGER... IV ONE (01:00)
[2020-11-13 01:31] LABS: CALCIUM 8.2 mg/dL (8.5-10.1); GFR 58.9; MAGNESIUM 1.9 mg/dL (1.8-2.4); POTASSIUM 3.8 mmol/L (3.5-5.1)
[2020-11-13] MEDS ORDERED: THIAMINE 200 MG/2 ML VIAL. IV ONE (01:38)
[2020-11-13] MEDS ORDERED: MVI, ADULT NO.4 WITH VIT K 10 ML VIAL IV ONE (01:39)
[2020-11-13 01:56] LABS: BARBITURATES NEG (NEG); BENZODIAZEPINES POS (NEG); CANNABINOIDS NEG (NEG); COCAINE NEG (NEG); METHADONE NEG (NEG); OPIATES NEG (NEG); PHENCYCLIDINE NEG (NEG)
[2020-11-13 01:57] LABS: BILIRUBIN,URINE SMALL (NEG); CLARITY,URINE CLEAR; COLOR,URINE YELLOW; GLUCOSE,URINE NEG (NEG); NITRITE,URINE POS (NEG); UROBILINOGEN,URINE 0.2 mg/dL (0.2 mg/dL)
[2020-11-13 01:58] LABS: BACTERIA,URINE 0 /HPF (0-FEW); GRANULAR CASTS,URINE FEW /HPF; HYALINE CASTS, URINE FEW /HPF; RBC,URINE 0 /HPF (0-2); SQUAMOUS EPITHELIAL CELL,UR OCC /LPF; WBC,URINE OCC /HPF (0-4)
[2020-11-13 02:00] LABS: BASO # 0.1 x10^3/uL (0.0-0.2); BASO % 1 % (0-3); EOS % 0 % (0-3); HEMATOCRIT 41.6 % (36.0-47.0); HEMOGLOBIN 13.2 g/dL (12.0-15.5); LYMPH # 0.4 x10^3/uL (1.0-4.8); LYMPH % 7 % (24-48); MEAN CORPUSCULAR HEMOGLOBIN 24 pg (25-35); MEAN CORPUSCULAR HGB CONC 32 g/dL (31-37); MEAN CORPUSCULAR VOLUME 76 fL (79-100); MONO # 0.8 x10^3/uL (0.0-1.1); MONO % 17 % (0-9); NEUT # 3.8 x10^3uL (1.8-7.7); NEUT % 75 % (31-73); PLATELET COUNT 58 x10^3/uL (140-400); RED BLOOD COUNT 5.46 x10^6/uL (3.50-5.40); WHITE BLOOD COUNT 5.1 x10^3/uL (4.0-11.0)
[2020-11-13 02:07] LABS: AMPHETAMINE/METHAMPHETAMINE NEG (NEG)
[2020-11-13] MEDS ORDERED: chlordiazePOXIDE HCL 25 MG CAPSULE PO PRN ×2 (03:00)
[2020-11-13] MEDS ORDERED: cloNIDine HCL 0.1 MG TABLET PO PRN (03:00)
[2020-11-13] MEDS ORDERED: HALOPERIDOL LACT 5 MG/ML VIAL. IM PRN (03:00)
[2020-11-13] MEDS ORDERED: ONDANSETRON PF 4 MG/2 ML VIAL. IVP PRN (03:00)
[2020-11-13 03:31] LABS: ALBUMIN 3.7 g/dL (3.4-5.0); DIRECT BILIRUBIN 0.6 mg/dL (0.0-0.2); TOTAL BILIRUBIN 1.1 mg/dL (0.2-1.0); TOTAL PROTEIN 7.7 g/dL (6.4-8.2)
[2020-11-13 04:12] VITALS: BP 143/92
[2020-11-13] MEDS: IPRATRPIUM/ALBUTEROL 0.5/2.5MG 3 ML NEBU. NEB SCH ×3 (06:26→15:14)
[2020-11-13 06:46] VITALS: BP 125/80
[2020-11-13] MEDS ORDERED: IV RINGERS SOLUTION,LACTATED 1,000 ML IV SCH (09:00)
[2020-11-13] MEDS: MVI, ADULT NO.4 WITH VIT K 10 ML, FOLIC ACID INJ 1 MG, THIAMINE INJ 100 MG in IV RINGER... IV SCH (09:00)
[2020-11-13] MEDS ORDERED: CIPROFLOXACIN HCL 500 MG TABLET PO ONE (09:00)
--- NOTE | 2020-11-13 10:16 | HP ---
ADMIT DATE: 11/13/2020 ATTENDING PHYSICIAN: Dr. Gunter. CHIEF COMPLAINT: Alcohol withdrawal. HISTORY OF PRESENT ILLNESS: The patient is a 49-year-old female currently undergoing transition to male, presents with symptoms of alcohol withdrawal. She is a chronic alcoholic. I have actually taken care of her as attending at the [facility] a year ago as well as here at [facility]. She stopped drinking the day before. She has had significant shakes, agitation, and wanted admission for treatment of delirium tremens. She has a longstanding history of alcohol abuse with multiple admissions and withdrawal seizures. She usually consumes a fifth of vodka, Wild [place] and sometimes Fireball. She has attempted to quit drinking, but developed tremors, hallucinations and seizures. She has been weak and falling. Her last admission with alcohol withdrawal was in May 2020. PAST MEDICAL HISTORY: Significant for chronic alcoholism, DTs, anxiety, depression, hypertension, gender transition. She has also had bilateral mastectomies. CURRENT MEDICATIONS: None. ALLERGIES: PENICILLIN, SULFA, ANTIBIOTICS, AND KETAMINE. SOCIAL HISTORY: She is a smoker. She has significant alcohol abuse. FAMILY HISTORY: Unobtainable. REVIEW OF SYSTEMS: Significant for the shakes, generalized weakness, agitation, hallucinations, some nausea, no vomiting, no hematemesis. No recent COVID exposure. All other systems reviewed and turned to be negative. PHYSICAL EXAMINATION: VITAL SIGNS: When I saw her, her temperature was 98.1 degrees Fahrenheit, blood pressure 124/80 mmHg, pulse was 104 and regular, oxygen saturation 98% on room air. HEENT: Head is without trauma. Pupils are reactive. Sclerae nonicteric. Oropharynx clear. NECK: Supple, no bruits. LUNGS: Good breath sounds. CARDIOVASCULAR: Showed distant heart tones. No gallops. ABDOMEN: Soft, no guarding. EXTREMITIES: Without edema. NEUROLOGIC: Focally intact, but significant shaking. SKIN: Warm and dry. PERTINENT LABORATORY STUDIES: The admission hemoglobin was 13.2 g/dL with a white count of 5100. Electrolytes are within normal range. Potassium is 3.8 mEq. Transaminases were elevated. AST was 940, ALT 387, total bilirubin 1.1 mg/dL. ASSESSMENT: 1. A 49-year-old female with acute alcohol intoxication and withdrawal. 2. Impending delirium tremens. 3. Gender dysphoria, currently undergoing transition from female to male. 4. Underlying depression with anxiety. 5. Essential hypertension. PLAN: 1. Admit to the inpatient unit. 2. CIWA protocol. 3. Ativan is also added. 4. Diet as tolerated. ROLF GUNTER MD DR: BREE/josey JOB#: [id number] / [id number]
[2020-11-13 11:05] VITALS: BP 130/86
[2020-11-13] MEDS: IV RINGERS SOLUTION,LACTATED 1,000 ML IV SCH ×3 (12:37→20:41)
[2020-11-13 15:15] VITALS: BP 116/80
[2020-11-13] MEDS ORDERED: IPRATRPIUM/ALBUTEROL 0.5/2.5MG 3 ML NEBU. NEB PRN (15:30)
[2020-11-13 19:12] VITALS: BP 151/92
[2020-11-13] MEDS: diphenhydrAMINE 50 MG/ML VIAL IVP PRN (21:37)
[2020-11-13 22:55] VITALS: BP 135/84
[2020-11-14] MEDS: IV RINGERS SOLUTION,LACTATED 1,000 ML IV SCH ×3 (02:57→18:12)
[2020-11-14 05:03] VITALS: BP 134/85
[2020-11-14 05:52] LABS: BASO % 1 % (0-3); EOS # 0.1 x10^3/uL (0.0-0.7); EOS % 2 % (0-3); HEMATOCRIT 34.2 % (36.0-47.0); HEMOGLOBIN 10.8 g/dL (12.0-15.5); LYMPH # 0.8 x10^3/uL (1.0-4.8); LYMPH % 22 % (24-48); MEAN CORPUSCULAR HEMOGLOBIN 24 pg (25-35); MEAN CORPUSCULAR HGB CONC 32 g/dL (31-37); MEAN CORPUSCULAR VOLUME 76 fL (79-100); MONO # 0.4 x10^3/uL (0.0-1.1); MONO % 11 % (0-9); NEUT # 2.5 x10^3uL (1.8-7.7); NEUT % 64 % (31-73); PLATELET COUNT 52 x10^3/uL (140-400); RED BLOOD COUNT 4.47 x10^6/uL (3.50-5.40); RED CELL DISTRIBUTION WIDTH 19.6 % (11.5-14.5); WHITE BLOOD COUNT 3.8 x10^3/uL (4.0-11.0)
[2020-11-14 06:02] LABS: CREATININE 0.8 mg/dL (0.6-1.0); GFR 76.2; POTASSIUM 3.3 mmol/L (3.5-5.1)
[2020-11-14] MEDS: diphenhydrAMINE 50 MG/ML VIAL IVP PRN ×3 (08:26→22:17)
[2020-11-14] MEDS: MVI, ADULT NO.4 WITH VIT K 10 ML, FOLIC ACID INJ 1 MG, THIAMINE INJ 100 MG in IV RINGER... IV SCH (08:27)
[2020-11-14 10:24] VITALS: BP 138/87
--- NOTE | 2020-11-14 12:18 | PN ---
DATE: 11/14/2020 ATTENDING PHYSICIAN: Dr. Gunter. SUBJECTIVE: Less tremulous, very flat affect. No appetite. No new complaints. OBJECTIVE FINDINGS: VITAL SIGNS: Blood pressure this morning is 138/87, pulse 90 and regular, temperature 98.0 degrees Fahrenheit, oxygen saturation 99% on room air. HEENT: Head is without trauma. Pupils are reactive. Sclerae nonicteric. Oropharynx is clear. NECK: Supple, no bruits identified. LUNGS: Good breath sounds. CARDIOVASCULAR: Regular heart tones. ABDOMEN: Soft, no guarding or rebound tenderness. Bowel sounds are hypoactive. EXTREMITIES: Show no cyanosis or edema. NEUROLOGIC: Less tremulousness. Speech is fluent. She is alert, very flat affect. LABORATORY DATA: Hemoglobin is 10.8 g/dL. Chemistry panel: Sodium 136, potassium 3.3 mEq, creatinine is 0.8 mg/dL. ASSESSMENT: 1. A 49-year-old female, transitioning to male with acute alcohol intoxication. 2. Alcohol withdrawal symptoms with delirium tremens. 3. Gender dysphoria. 4. Underlying depression with anxiety. 5. Essential hypertension. PLAN: 1. Continue IV hydration. 2. Encourage p.o. diet as tolerated. 3. CIWA protocol. 4. Ativan as ordered. ROLF GUNTER MD DR: BREE/josey JOB#: [id number] / [id number]
[2020-11-14 14:52] VITALS: BP 131/84
[2020-11-14] MEDS: POLYVINYL ALCOHOL 1.4% OPHTH SOLUTION 15ML BOTTLE. OU PRN ×3 (16:44→22:17)
[2020-11-14 19:05] VITALS: BP 132/79
[2020-11-14 22:31] VITALS: BP 125/86
[2020-11-15] MEDS: diphenhydrAMINE 50 MG/ML VIAL IVP PRN ×3 (05:15→19:26)
[2020-11-15 06:54] VITALS: BP 133/88
--- NOTE | 2020-11-15 08:50 | PN ---
DATE: 11/15/2020 ATTENDING PHYSICIAN: Dr. Gunter. SUBJECTIVE: The patient has improved. Affect is a little livelier. No nausea. He is not agitated or shaking. He remains very weak. OBJECTIVE FINDINGS: VITAL SIGNS: Blood pressure today is 133/88, pulse is 100 and regular, temperature 98.0 degrees Fahrenheit, oxygen saturation 98% on room air. HEENT: Head is without trauma. Pupils are reactive. Sclerae nonicteric. Oropharynx clear. NECK: Supple, no bruits. LUNGS: Clear. CARDIOVASCULAR: Showed regular heart tones. No gallops. ABDOMEN: Soft. EXTREMITIES: Without edema. NEUROLOGIC: Focally intact. Affect is less flat. SKIN: Warm and dry. LABORATORY DATA: Chemistries from yesterday noted. ASSESSMENT: 1. A 49-year-old female, transitioning to male with alcohol withdrawal symptoms and delirium tremens, improved. 2. Gender dysphoria. 3. Chronic alcoholism. 4. Essential hypertension. 5. Generalized debility due to alcohol use. PLAN: 1. We can stop his IV fluids and banana bags. He is euvolemic. 2. Encourage p.o. intake. 3. Continue Ativan and the CIWA protocol as needed. 4. Tentative discharge plans for tomorrow. ROLF GUNTER MD DR: BREE/josey JOB#: [id number] / [id number]
[2020-11-15] MEDS: LORazepam 1 MG TABLET PO PRN ×6 (09:32→19:26)
[2020-11-15] MEDS: LACTOBACILLUS RHAMNOSUS GG 1 CAPSULE. PO SCH ×2 (09:33→19:26)
[2020-11-15 11:15] VITALS: BP 125/92
[2020-11-15] MEDS: ACETAMINOPHEN 325 MG TABLET PO PRN (15:18)
[2020-11-15 17:27] VITALS: BP 137/99
[2020-11-15] MEDS: POLYETHYLENE GLYCOL 3350 17 GM PACKET. PO SCH (17:49)
[2020-11-15 22:00] VITALS: BP 126/95
[2020-11-16] MEDS: LORazepam 1 MG TABLET PO PRN ×5 (00:22→13:22)
[2020-11-16 05:58] VITALS: BP 129/76
[2020-11-16] MEDS: diphenhydrAMINE 50 MG/ML VIAL IVP PRN (06:31)
[2020-11-16] MEDS: LACTOBACILLUS RHAMNOSUS GG 1 CAPSULE. PO SCH (08:36)
[2020-11-16] MEDS: ACETAMINOPHEN 325 MG TABLET PO PRN (08:39)
[2020-11-16] MEDS: POLYETHYLENE GLYCOL 3350 17 GM PACKET. PO SCH (08:39)
[2020-11-16 09:29] LABS: BASO % 1 % (0-3); EOS # 0.1 x10^3/uL (0.0-0.7); EOS % 2 % (0-3); HEMATOCRIT 35.8 % (36.0-47.0); HEMOGLOBIN 11.5 g/dL (12.0-15.5); LYMPH # 0.8 x10^3/uL (1.0-4.8); LYMPH % 22 % (24-48); MEAN CORPUSCULAR HEMOGLOBIN 25 pg (25-35); MEAN CORPUSCULAR HGB CONC 32 g/dL (31-37); MEAN CORPUSCULAR VOLUME 76 fL (79-100); MONO # 0.5 x10^3/uL (0.0-1.1); MONO % 14 % (0-9); NEUT # 2.4 x10^3uL (1.8-7.7); NEUT % 62 % (31-73); PLATELET COUNT 110 x10^3/uL (140-400); RED BLOOD COUNT 4.69 x10^6/uL (3.50-5.40); RED CELL DISTRIBUTION WIDTH 19.8 % (11.5-14.5); WHITE BLOOD COUNT 3.8 x10^3/uL (4.0-11.0)
[2020-11-16 09:48] LABS: ALBUMIN/GLOBULIN RATIO 0.9 (1.0-1.7); CALCIUM 8.8 mg/dL (8.5-10.1); CREATININE 0.8 mg/dL (0.6-1.0); GFR 76.2; TOTAL BILIRUBIN 0.8 mg/dL (0.2-1.0); TOTAL PROTEIN 6.5 g/dL (6.4-8.2)
[2020-11-16 10:24] VITALS: BP 128/85
[2020-11-16] MEDS: POTASSIUM CHLORIDE 20 MEQ TABLET.ER. PO SCH ×2 (10:32→13:22)
[2020-11-16 14:38] LABS: CALCIUM 9.4 mg/dL (8.5-10.1); CREATININE 0.7 mg/dL (0.6-1.0); GFR 88.9; POTASSIUM 3.8 mmol/L (3.5-5.1)
--- NOTE | 2020-11-17 09:16 | DS ---
DATE OF DISCHARGE: 11/16/2020 HOSPITAL COURSE: The patient is a 49-year-old male patient, who was admitted on 11/13/2020 with alcohol withdrawal. He is a chronic alcoholic. He stopped drinking the day before, had had significant shakes, agitation and wanted admission for treatment of delirium tremens. Apparently, the patient has longstanding history of alcohol abuse with multiple admissions and withdrawal seizures. He usually consumes a fifth of vodka, [place] or sometimes Fireball, attempted to quit drinking, but developed tremors, hallucination and seizure, was admitted and started on alcohol withdrawal protocol and did very well and the decision was made to discharge him home. PHYSICAL EXAMINATION: GENERAL: When I saw him this afternoon, he looked well and was clearly in no apparent respiratory distress. No pallor, jaundice, cyanosis or thyromegaly. No jugular venous distention. No lower limb edema. VITAL SIGNS: His heart rate was 94, blood pressure was 128/85, temperature 97.8, respiratory rate was 16, and oxygen saturation was 98%. HEAD, EYES, EARS, NOSE AND THROAT: Showed normocephalic and atraumatic. NECK: Supple. HEART: Normal first and second heart sounds. No gallop, rub or murmur. CHEST: Clear to auscultation. No crepitation or rhonchi. ABDOMEN: Distended, soft, nontender. NEUROLOGIC: Grossly intact. LABORATORY DATA: This morning showed a serum sodium 137, potassium 3.8, chloride 98, bicarbonate 29, anion gap of 10, BUN 13, creatinine 0.7, estimated GFR was 88 mL per minute. Glucose 102, calcium was 9.4. White cell count was 3800, hemoglobin 11.5, hematocrit 36, MCV 76 and platelet count of 110,000. DISCHARGE MEDICATIONS: The patient was discharged home to continue on the following medications: Albuterol sulfate 2 puffs every 4 hours as needed, amitriptyline 75 mg at bedtime, cholecalciferol (vitamin D3) 10,000 units 2 tablets once a day, doxepin 100 mg at bedtime, folic acid 1 mg once a day, lorazepam 1 mg 4 times a day, naphazoline 1 drop to both eyes 4 times a day, Nicoderm CQ 14 mg transdermal patch once a day, rizatriptan benzoate for rizatriptan 10 mg daily, simvastatin 20 mg at bedtime, venlafaxine 75 mg daily and Ativan in a tapering fashion. FINAL DISCHARGE DIAGNOSES: 1. Alcohol withdrawal syndrome, resolving. 2. Gender dysphoria. 3. Chronic alcoholism. 4. Essential hypertension. 5. Generalized debility. KAMRAN GARCIA MD DR: MICHAEL/josey JOB#: [id number] / [id number]
[2020-11-18] MEDS ORDERED: THIAMINE 100 MG TABLET. PO SCH (09:00)
[2020-11-18] MEDS ORDERED: FOLIC ACID 1 MG TABLET PO SCH (09:00)
[2020-11-18] MEDS ORDERED: MULTIVITAMIN with MINERAL TABLET. PO SCH (09:00)
== END 2020-11-16 16:00 | disposition home or self-care (01) | DRG 897 ==
LOC: ER 00:47 → 1 SOUTH 03:34
PROVIDERS: ADMIT Hospitalist; ATTEND Hospitalist
DX: F10.229 Alcohol dependence with intoxication, unspecified (principal); F10.231 Alcohol dependence with withdrawal delirium; D69.6 Thrombocytopenia, unspecified; F17.210 Nicotine dependence, cigarettes, uncomplicated; F41.8 Other specified anxiety disorders; I10 Essential (primary) hypertension; G43.909 Migraine, unspecified, not intractable, without status migrainosus; M19.90 Unspecified osteoarthritis, unspecified site; I95.9 Hypotension, unspecified; Y90.7 Blood alcohol level of 200-239 mg/100 ml; S80.12XA Contusion of left lower leg, initial encounter; S80.11XA Contusion of right lower leg, initial encounter; W18.30XA Fall on same level, unspecified, initial encounter; Z80.0 Family history of malignant neoplasm of digestive organs; Z82.49 Family history of ischemic heart disease and other diseases of the circulatory system; Z88.0 Allergy status to penicillin; Z88.2 Allergy status to sulfonamides; Z90.13 Acquired absence of bilateral breasts and nipples; Y93.89 Activity, other specified; Y92.89 Other specified places as the place of occurrence of the external cause; Y99.8 Other external cause status
CPT/HCPCS: 36415; 80048; 80053; 80076; 80307; 81001; 83605; 83735; 85025; 87040; 87086; 96365; 96366; 96375; 99285; G0480; J0696; J1200; J2060; J7120

== ENCOUNTER 2020-11-19 20:41 | Emergency (ER) | payer MEDICARE ==
[~2020-11-19] VITALS: Ht 157.5 cm; Wt 57.2 kg
[2020-11-19 20:51] VITALS: BP 115/79
--- NOTE | 2020-11-19 20:58 | PHYS DOC ---
Past History Past Medical History: Alcoholism, Anxiety, Depression, Hypertension Additional Past Medical Histor: Delirium tremens, PTSD, OCD Past Surgical History: Other Additional Past Surgical Histo: foot fx, ACL Smoking: Non-smoker Alcohol Use: Heavy Drug Use: None Adult General Chief Complaint Chief Complaint: MECHANICAL FALL HPI HPI Patient is 49 years old, who presents after a fall at home after drinking hard alcohol. Patient states they were drinking alcohol today, and got intoxicated while at home, slipped and fell on the hardwood floor in the living room. Patient states they hit their forehead and felt lightheaded for a few minutes. States that they were able to get up on their own and called the ambulance because there is a big knot on the forehead. Denies headache, change in vision, neck pain, chest pain, shortness of breath, abdominal pain, nausea, vomiting. Denies any trouble ambulating. Denies any numbness/weakness/tingling. Denies any other drug use. Review of Systems Review of Systems Review of systems otherwise unremarkable except noted in HPI Allergies Allergies Allergies Coded Allergies Type Severity Reaction Last Updated Verified ketamine Allergy Severe 11/19/20 Yes Penicillins Allergy Intermediate 11/19/20 Yes Sulfa (Sulfonamide Antibiotics) Allergy Intermediate 11/19/20 Yes Physical Exam Physical Exam Constitutional: Well developed, well nourished, no acute distress, non-toxic appearance. [] HENT: Patient has a large contusion with swelling in the middle of the forehead with no laceration. Bilateral external ears normal, no hemotympanums oropharynx moist, no oral exudates, nose normal. [] Eyes: PERRLA, EOMI, conjunctiva normal, no discharge. [] Neck: Normal range of motion, no tenderness, supple, no stridor. [] Cardiovascular:Heart rate regular rhythm, no murmur [] Lungs & Thorax: Bilateral breath sounds clear to auscultation [] Abdomen: soft, no tenderness, no masses, no pulsatile masses. [] Skin: Warm, dry, no erythema, no rash. [] Back: No tenderness, Extremities: No tenderness, no cyanosis, no clubbing, ROM intact, no edema. [] Neurologic: Alert and oriented X 3, normal motor function, normal sensory function, no focal deficits noted. [] Psychologic: Affect normal, mood normal. Endorses alcoholism [] Current Patient Data Vital Signs Vital Signs Date Time Temp Pulse Resp B/P (MAP) Pulse Ox O2 Delivery O2 Flow Rate FiO2 11/19/20 20:45 97.9 119 20 115/79 (91) 94 Room Air EKG EKG [] Radiology/Procedures Radiology/Procedures [] Exam: CT head INDICATION: Fall TECHNIQUE: Sequential axial images through the head were obtained without the administration of IV contrast. Comparisons: 06/01/2020 FINDINGS: No focal parenchymal lesion or hemorrhage is identified. There is no midline shift or sulcal effacement. No acute vascular territory infarction is identified. Wang-white distinction is preserved. The ventricular system is within normal limits without compression hydrocephal us. The basal cisterns are well maintained. The visualized portions of the paranasal sinuses and mastoid air cells are well-pneumatized. No acute fractures. IMPRESSION: No acute intracranial abnormality. Exposure: One or more of the following in the visualized dose reduction techniques were utilized for this examination: 1. Automated exposure control 2. Adjustment of the MA and/or KV according to patient size Use of iterative of reconstructive technique Electronically signed by: Melissa Corona MD (11/19/2020 9:34 PM) [facility] Heart Score C/O Chest Pain: No Risk Factors: Risk Factors: DM, Current or recent (<one month) smoker, HTN, HLP, family history of CAD, obesity. Risk Scores: Risk Factors: DM, Current or recent (<one month) smoker, HTN, HLP, family history of CAD, obesity. Course & Med Decision Making Course & Med Decision Making Patient is a 49-year-old who presents with forehead contusion after falling while intoxicated Vital signs notable for tachycardia. Physical exam noted above. Patient denied need for Tylenol or ibuprofen. Given ice pack. [] Patient states that this was a mechanical fall, tripping and falling. Denies any prodrome or any other symptoms currently. Imaging with no acute osseous abnormality, or other acute finding. Patient awake alert in no acute distress. No focal neurologic deficits. Patient able to ambulate without issue. Discussed all findings with patient. Patient stated they were ready to go home. Gave strict return precautions to the ED. Advised to follow-up with primary care on Saturday. Patient grateful, verbalized understanding and agreed with plan of discharge. Dragon Disclaimer Dragon Disclaimer This electronic medical record was generated, in whole or in part, using a voice recognition dictation system. Departure Departure: Disposition: 01 DC HOME SELF CARE/HOMELESS Condition: GOOD Referrals: PCP,JUAN (PCP) Patient Instructions: Concussion and Brain Injury, Head Injury, Adult Additional Instructions: Please read all of the attached information. You can use Tylenol, ibuprofen, ice and Benadryl at home as needed, and tolerated as long as you are not allergic to any of these. Please follow-up with your primary care physician on Saturday to set up a follow-up as needed. Please come back to the ED with new or concerning symptoms as discussed. LE YOON MD Nov 19, 2020 20:58
--- NOTE | 2020-11-19 21:36 | RAD ---
Exam: CT head INDICATION: Fall TECHNIQUE: Sequential axial images through the head were obtained without the administration of IV co ntrast. Comparisons: 06/01/2020 FINDINGS: No focal parenchymal lesion or hemorrhage is identified. There is no midline shift or sulcal effaceme nt. No acute vascular territory infarction is identified. Wang-white distinction is preserved. The ventricular system is within normal limits without compression hydrocephalus. The basal cisterns are well maintained. The visualized portions of the paranasal sinuses and mastoid air cells are well-pneumatized. No acute fractures. IMPRESSION: No acute intracranial abnormality. Exposure: One or more of the following in the visualized dose reduction techniques were utilized for this examination: 1. Automated exposure control 2. Adjustment of the MA and/or KV according to patient size Use of iterative of reconstructive technique Electronically signed by: Melissa Corona MD (11/19/2020 9:34 PM) [facility]
== END 2020-11-19 21:51 | disposition home or self-care (01) ==
LOC: ER 20:41
DX: S00.83XA Contusion of other part of head, initial encounter (principal); F10.229 Alcohol dependence with intoxication, unspecified; R42 Dizziness and giddiness; F41.9 Anxiety disorder, unspecified; F32.9 Major depressive disorder, single episode, unspecified; I10 Essential (primary) hypertension; Z98.890 Other specified postprocedural states; Z88.0 Allergy status to penicillin; Z88.2 Allergy status to sulfonamides; Z88.8 Allergy status to other drugs, medicaments and biological substances; W01.0XXA Fall on same level from slipping, tripping and stumbling without subsequent striking against object, initial encounter; Y93.89 Activity, other specified; Y92.89 Other specified places as the place of occurrence of the external cause; Y99.8 Other external cause status
CPT/HCPCS: 70450; 99284

== ENCOUNTER 2020-12-20 16:52 | Emergency (ER) | payer MEDICARE ==
[~2020-12-20] VITALS: Ht 157.5 cm; Wt 57.2 kg
[2020-12-20 19:13] VITALS: BP 119/76
== END 2020-12-20 19:24 | disposition home or self-care (01) ==
LOC: ER 16:52
DX: F10.20 Alcohol dependence, uncomplicated (principal); R94.5 Abnormal results of liver function studies; E87.2 Acidosis; F41.9 Anxiety disorder, unspecified; F32.9 Major depressive disorder, single episode, unspecified; I10 Essential (primary) hypertension; F43.10 Post-traumatic stress disorder, unspecified; Z88.0 Allergy status to penicillin; Z88.4 Allergy status to anesthetic agent; Z88.2 Allergy status to sulfonamides; Y90.8 Blood alcohol level of 240 mg/100 ml or more
CPT/HCPCS: 36415; 70450; 72125; 80053; 84484; 85007; 85025; 93005; 96365; 99285; G0480; J7030